=== PATIENT | female | born 1955 | race Caucasian/White ===

== ENCOUNTER 2019-05-21 07:55 | Emergency (ER) | payer MEDICARE ==
[~2019-05-21] VITALS: Ht 165.1 cm; Wt 74.8 kg
[~2019-05-21 07:55] MED LIST: ALBUTEROL SULF8.5 GM; ASPIRIN EC81 MG PO; ATORVASTATIN CA20 MG PO; CARVEDILOL6.25 MG PO; CLOPIDOGREL75 MG PO; DILANTIN100 MG PO; DULERA 200 MCG/13 GM; GABAPENTIN300 MG PO; HYDROCODON-ACE1 EA12; LIDOCAINE1 EA; SPIRIVA18 MCG INH; TRIAMCINOLONE A15 G3; VALIUM10 MG; VESICARE5 MG PO; ZANTAC150 MG; ZOMIG5 MG; ZONISAMIDE100 MG; atrovastin; flonase
--- OUTSIDE RECORDS SUMMARY | 2019-05-21 07:59 | XMS REPORT | Clinical Summary ---
Author Author AKBAR Videovalis GmbHEastern Idaho Regional Medical CenterSkout [facility] Organization [facility] Address Unknown Phone Unavailable Care Team Providers Care Bass Fisher Name Role Phone Akira Gibbons PCP Unavailable Allergies Comments Active Allergy Reactions Severity Noted Date Sulfamethoxazole-Trimetho Itching High 03/22/2015 prim Budesonide-Formoterol Nausea Only High 03/22/2015 Medications End Date Status Medication Sig Dispensed Refills Start Date Active atorvastatin (LIPITOR) 80 Take 40 mg by 0 MG tablet mouth daily . Active pantoprazole (PROTONIX) Take 40 mg by 0 40 MG tablet mouth daily. Active phenytoin (DILANTIN) 100 Take 100 mg 0 MG ER capsuleIndications: by mouth as per pt and , directed 100 mg every night; On Thursday, , Thursday, Thursday 100 mg in the day time added. Active solifenacin (VESICARE) 5 Take 5 mg by 0 MG tablet mouth daily. Active tiotropium (SPIRIVA) 18 Inhale 18 mcg 0 mcg inhalation capsule by mouth via inhaler daily. Active albuterol HFA (VENTOLIN Inhale 1 puff 0 HFA) 90 mcg/actuation by mouth via inhaler inhaler every 6 (six) hours as needed for Wheezing. Active zonisamide (ZONEGRAN) 100 Take 100 mg 0 MG capsule by mouth 2 (two) times daily . Active pregabalin (LYRICA) 50 MG Take 50 mg by 0 capsule mouth 2 (two) times daily . Active ranitidine (ZANTAC) 150 Take 150 mg 0 MG tablet by mouth 2 (two) times daily. Active calcium citrate-vitamin Take 600 mg 0 D3 250 mg calcium- 200 by mouth. unit Tab Active DULERA 200-5 2 puffs 2 0 02/18/201 mcg/actuation inhaler (two) times 9 daily . Active fluticasone (FLONASE) 50 0 mcg/actuation nasal spray 8 Active clobetasol (TEMOVATE) AP AA ON 0 0.05 % cream RIGHT ARM QD 8 FOR 2 WEEKS CYCLES 01/20/2020 Active furosemide (LASIX) 20 MG Take 1 tablet 30 tablet 0 tablet (20 mg total) 9 by mouth daily. 01/20/2020 Active metoprolol (LOPRESSOR) Take 1 tablet 60 tablet 0 100 MG tablet (100 mg 9 total) by mouth 2 (two) times daily. Active oxyCODONE-acetaminophen Take 1 tablet 0 (PERCOCET) 10-325 mg per by mouth tablet every 6 (six) hours as needed for Pain. 05/23/2019 Active methocarbamol (ROBAXIN) Take 1 tablet 30 tablet 0 500 MG tablet (500 mg 9 total) by mouth 3 (three) times daily as needed (muscle spasms) for up to 10 days. 05/13/2019 Discontinued aspirin 81 MG EC tablet Take 81 mg by 0 mouth daily. 05/13/2019 Discontinued clopidogrel (PLAVIX) 75 Take 75 mg by 0 mg tablet mouth daily. 01/17/2019 Discontinued diazepam (VALIUM) 10 MG Take 10 mg by 0 tablet mouth every 12 (twelve) hours as needed for Anxiety. 05/02/2019 Discontinued HYDROcodone-acetaminophen Take 1 tablet 0 (NORCO 7.5-325) 7.5-325 by mouth mg per tablet every 6 (six) hours as needed for Pain. 01/20/2019 Discontinued carvedilol (COREG) 6.25 Take 6.25 mg 0 MG tablet by mouth 2 (two) times daily with breakfast and dinner. 01/18/2019 Discontinued mometasone-formoterol Inhale 2 0 (DULERA) 100-5 puffs by mcg/actuation inhaler mouth via inhaler 2 (two) times daily. 05/02/2019 Discontinued LORazepam (ATIVAN) 0.5 MG Take 0.5 mg 0 tablet by mouth every 6 (six) hours as needed for Anxiety. 01/18/2019 Discontinued LORazepam (ATIVAN) 0.5 MG 0 tablet 8 01/18/2019 Discontinued PROTONIX 40 mg tablet 0 9 01/18/2019 Discontinued ZANTAC 150 mg tablet 0 8 01/18/2019 Discontinued solifenacin (VESICARE) 5 0 MG tablet 9 01/18/2019 Discontinued SPIRIVA WITH HANDIHALER 0 18 mcg inhalation capsule 9 01/18/2019 Discontinued zonisamide (ZONEGRAN) 100 0 MG capsule 9 01/18/2019 Discontinued aspirin-calcium carbonate Take by 0 81 mg-300 mg calcium(777 mouth. mg) Tab 01/31/2019 predniSONE (DELTASONE) 20 Take 2 40 tablet 0 MG tablet tablets (40 9 mg total) by mouth 2 (two) times daily for 10 days. 02/08/2019 rivaroxaban (XARELTO) 15 Take 1 tablet 38 tablet 0 mg Tab tablet (15 mg total) 9 by mouth 2 (two) times daily with breakfast and dinner for 19 days. 05/13/2019 Discontinued rivaroxaban (XARELTO) 20 Take 1 tablet 30 tablet 2 mg Tab tablet (20 mg total) 9 by mouth daily with dinner. 05/16/2019 enoxaparin (LOVENOX) 40 Inject 0.4 3 Syringe 0 mg/0.4 mL Syrg mLs (40 mg 9 total) subcutaneousl y daily for 2 days. 05/16/2019 polyethylene glycol Take 17 g by 14 each 0 (GLYCOLAX) 17 gram packet mouth as 9 needed (constipation ) for up to 3 days. Active Problems Problem Noted Date Lumbar disc disease 05/12/2019 Radiculitis, lumbosacral 05/03/2019 Chest pain 03/04/2019 SOB (shortness of breath) 01/18/2019 Atrial flutter/atrial fibrillation with rapid ventricular response 01/18/2019 Other pulmonary embolism without acute cor pulmonale 01/17/2019 Pulmonary infarct 01/17/2019 PAD (peripheral artery disease) 01/17/2019 Iatrogenic pneumothorax 04/11/2017 Pneumothorax after biopsy 04/10/2017 Lung nodule 04/10/2017 CAD (coronary artery disease) 04/10/2017 GERD (gastroesophageal reflux disease) 04/10/2017 Pneumothorax after biopsy 04/09/2017 PADs/p Aortogram:Plaque Patent Express stent RCIA ([id number] on 06/11/06);LEFT Bolus josette: Diffuse Disease 03/22/2015 Claudication of left lower extremity HLD (hyperlipidemia) CVD, Carotid plaque less than 50%, US 05/11/2014 COPD (chronic obstructive pulmonary disease) Resolved Problems Problem Noted Date Resolved Date SOB (shortness of breath) 01/17/2019 01/17/2019 Atrial fibrillation with RVR 01/17/2019 01/17/2019 Chronic bronchitis 04/10/2017 01/17/2019 PVD (peripheral vascular disease) 04/10/2017 01/17/2019 Encounters Care Team Description Date Type Specialty Joleen Christian 05/11/2019 Anesthesia Event Anson Bailey MD LAMINECTOMY,LUMBAR W/DISCECTOMY 05/11/2019 Surgery 05/03/2019 Travel Ramy Zurita MD Wellinghoff, Vanessa Thea, MD Hite, Wayne K., DO Chavarria, Jaime, MD Radiculitis, lumbosacral (Primary Dx); Flank pain; Cholecystitis; Essential hypertension; Chronic obstructive pulmonary disease, unspecified COPD type (HCC) 05/02/2019 Hospital General Internal Medicine - Encounter 05/13/2019 05/02/2019 Orders Only General Internal Medicine 05/02/2019 Travel 03/05/2019 Travel Jose Manuel Pack MD Zalavarria, Jonard Herbias, MD Chest pain, unspecified type (Primary Dx) 03/04/2019 Emergency Cardiology - 03/05/2019 03/04/2019 Orders Only General Internal Medicine 03/04/2019 Travel Dayron Patten Jr., MD Dang, Adan Epps MD SOB (shortness of breath) (Primary Dx); Other acute pulmonary embolism without acute cor pulmonale (HCC); Lung nodule; Chronic obstructive pulmonary disease with acute exacerbation (HCC); Paroxysmal atrial fibrillation (HCC) 01/17/2019 Hospital Cardiology - Encounter 01/20/2019 01/17/2019 Orders Only General Internal Medicine 01/17/2019 Travel after 05/20/2018 Family History Medical History Relation Name Comments Heart disease Father Cancer Mother Cancer Sister Relation Name Status Comments Father Mother Sister Social History Date Tobacco Use Types Packs/Day Years Used Quit: 06/17/2014 Former Smoker 1 10 Smokeless Tobacco: Former User Tobacco Cessation: Counseling Given: No Alcohol Use Drinks/Week oz/Week Comments No Sex Assigned at Date Recorded Not on file Industry Job Start Date Occupation Not on file Not on file Not on file Travel End Travel History Travel Start No recent travel history available. Last Filed Vital Signs Time Taken Vital Sign Reading 05/13/2019 9:20 AM CDT Blood Pressure 107/56 05/13/2019 9:20 AM CDT Pulse 80 05/13/2019 9:20 AM CDT Temperature 35.6 C (96 F) 05/13/2019 9:20 AM CDT Respiratory Rate 18 05/13/2019 9:20 AM CDT Oxygen Saturation 94% 05/10/2019 2:48 AM CDT Inhaled Oxygen 28% Concentration 05/11/2019 10:14 PM CDT Weight 80.6 kg (177 lb 12.8 oz) 05/11/2019 10:14 PM CDT Height 165.1 cm (5' 5") 05/11/2019 10:14 PM CDT Body Mass Index 29.59 Plan of Treatment Not on file Procedures Comments Procedure Name Priority Date/Time Associated Diagnosis RHYTHM STRIP - SCAN 05/18/2019 2:33 PM CDT RHYTHM STRIP - SCAN 05/17/2019 8:01 AM CDT RHYTHM STRIP - SCAN 05/13/2019 11:50 AM CDT CBC W/PLT COUNT & AUTO Routine 05/13/2019 DIFFERENTIAL 3:59 AM CDT CBC W/PLT COUNT & AUTO Routine 05/13/2019 DIFFERENTIAL 3:59 AM CDT BASIC METABOLIC PANEL (7) Routine 05/13/2019 3:59 AM CDT TRANSFUSION SERVICE 05/12/2019 REPORT - SCAN 6:01 PM CDT CBC W/PLT COUNT & AUTO Routine 05/12/2019 DIFFERENTIAL 6:15 AM CDT CBC W/PLT COUNT & AUTO Routine 05/12/2019 DIFFERENTIAL 6:15 AM CDT BASIC METABOLIC PANEL (7) Routine 05/12/2019 6:11 AM CDT POCT-GLUCOSE METER Routine 05/11/2019 10:10 PM CDT FL KENNEL KEEPER IN OR 30 Routine 05/11/2019 MINUTE INCREMENTS 3:38 PM CDT FL KENNEL KEEPER IN OR 30 Routine 05/11/2019 MINUTE INCREMENTS 2:50 PM CDT LAMINECTOMY,LUMBAR 05/11/2019 Lumbar disc disease W/DISCECTOMY 12:30 PM CDT Special Needs (ANDRIA FRAME, MICROSCOPE ) RHYTHM STRIP - SCAN 05/11/2019 10:20 AM CDT ABORH, MANUAL STAT 05/11/2019 6:29 AM CDT CBC W/PLT COUNT & AUTO Routine 05/11/2019 DIFFERENTIAL 5:39 AM CDT TYPE AND SCREEN, Routine 05/11/2019 AUTOMATED 5:39 AM CDT PT/APTT Routine 05/11/2019 5:39 AM CDT PHOSPHORUS Routine 05/11/2019 5:39 AM CDT MAGNESIUM Routine 05/11/2019 5:39 AM CDT BASIC METABOLIC PANEL (7) Routine 05/11/2019 5:39 AM CDT CBC W/PLT COUNT & AUTO Routine 05/11/2019 DIFFERENTIAL 5:39 AM CDT URINALYSIS W/ REFLEX Routine 05/10/2019 URINE CULTURE 11:45 AM CDT PLATELET AGGREGATION: Routine 05/09/2019 DRUG EFFECT 9:47 AM CDT PERIPHERAL VASCULAR 05/07/2019 REPORT - SCAN 9:20 PM CDT VENOUS DOPPLER LEGS Routine 05/06/2019 BILATERAL 2:00 PM CDT CBC W/PLT COUNT & AUTO Routine 05/05/2019 DIFFERENTIAL 3:55 AM CDT CBC W/PLT COUNT & AUTO Routine 05/05/2019 DIFFERENTIAL 3:55 AM CDT BASIC METABOLIC PANEL (7) Routine 05/05/2019 3:54 AM CDT MR SPINE LUMBAR WITHOUT MARIO 05/04/2019 IV CONTRAST 5:04 PM CDT CBC W/PLT COUNT & AUTO Routine 05/04/2019 DIFFERENTIAL 3:37 AM CDT CBC W/PLT COUNT & AUTO Routine 05/04/2019 DIFFERENTIAL 3:37 AM CDT BASIC METABOLIC PANEL (7) Routine 05/04/2019 3:37 AM CDT BASIC METABOLIC PANEL (7) Routine 05/03/2019 6:19 AM CDT CBC W/PLT COUNT & AUTO Routine 05/03/2019 DIFFERENTIAL 5:01 AM CDT PT/APTT Routine 05/03/2019 5:01 AM CDT CBC W/PLT COUNT & AUTO Routine 05/03/2019 DIFFERENTIAL 5:01 AM CDT US ABDOMEN LIMITED STAT 05/02/2019 9:20 PM CDT HEPATIC FUNCTION PANEL Routine 05/02/2019 9:06 PM CDT BILIRUBIN, ADULT TOTAL STAT 05/02/2019 9:06 PM CDT ECG 12-LEAD Routine 05/02/2019 6:52 PM CDT ECG 12-LEAD Routine 05/02/2019 6:52 PM CDT Procedure Note - Interface, External Ris In - 05/02/2019 9:05 PM CDT Ventricula r Rate 96 BPM Atrial Rate 227 BPM QRS Duration 82 ms Q-T Interval 344 ms QTC Calculatio n(Bazett) 434 ms R Cecilia 61 degrees T Cecilia 68 degrees Atrial fibrillati on Anterior infarct , age undetermin ed Abnormal ECG When compared with ECG of 9 12:11, Atrial fibrillati on has replaced Atrial flutter QT has shortened POCT-LACTIC ACID, VENOUS Routine 05/02/2019 6:[address] ABDOMEN/PELVIS STAT 05/02/2019 WITH/WITHOUT IV CONTRAST 6:00 PM CDT CBC W/PLT COUNT & AUTO STAT 05/02/2019 DIFFERENTIAL 1:52 PM CDT ALKALINE PHOSPHATASE STAT 05/02/2019 1:52 PM CDT AST (SGOT) STAT 05/02/2019 1:52 PM CDT ALT (SGPT) STAT 05/02/2019 1:52 PM CDT URINALYSIS W/ MICROSCOPIC STAT 05/02/2019 1:52 PM CDT BASIC METABOLIC PANEL (7) STAT 05/02/2019 1:52 PM CDT CBC W/PLT COUNT & AUTO STAT 05/02/2019 DIFFERENTIAL 1:52 PM CDT RHYTHM STRIP - SCAN 03/07/2019 5:24 PM CDT REPORT OF PROCEDURE - 03/07/2019 ENDOSCOPY SCAN 3:30 PM CDT RHYTHM STRIP - SCAN 03/07/2019 12:20 PM CDT CBC W/PLT COUNT & AUTO Routine 03/05/2019 DIFFERENTIAL 4:28 AM CDT CBC W/PLT COUNT & AUTO Routine 03/05/2019 DIFFERENTIAL 4:28 AM CDT MAGNESIUM Routine 03/05/2019 4:28 AM CDT LIPID PANEL Routine 03/05/2019 4:28 AM CDT HEPATIC FUNCTION PANEL Routine 03/05/2019 4:28 AM CDT BASIC METABOLIC PANEL (7) Routine 03/05/2019 4:28 AM CDT TROPONIN I Routine 03/05/2019 4:28 AM CDT TROPONIN I Routine 03/04/2019 9:36 PM CDT ED ECG INTERPRETATION Routine 03/04/2019 2:07 PM CDT XR CHEST 2 VIEWS STAT 03/04/2019 1:34 PM CDT D-DIMER STAT 03/04/2019 1:24 PM CDT CBC W/PLT COUNT & AUTO STAT 03/04/2019 DIFFERENTIAL 1:20 PM CDT RAPID TROPONIN I STAT 03/04/2019 1:20 PM CDT BASIC METABOLIC PANEL (7) STAT 03/04/2019 1:20 PM CDT CBC W/PLT COUNT & AUTO STAT 03/04/2019 DIFFERENTIAL 1:20 PM CDT PT/APTT STAT 03/04/2019 12:42 PM CDT ECG 12-LEAD Routine 03/04/2019 12:11 PM CDT Procedure Note - Interface, External Ris In - 03/04/2019 7:52 PM CDT Ventricula r Rate 82 BPM Atrial Rate 241 BPM QRS Duration 92 ms Q-T Interval 420 ms QTC Calculatio n(Bazett) 490 ms R Cecilia 34 degrees T Cecilia 59 degrees Atrial flutter with variable A-V block Low voltage QRS Prolonged QT Abnormal ECG When compared with ECG of 9 09:58, Atrial flutter has replaced Atrial fibrillati on Vent. rate has decreased BY 42 BPM ECG 12-LEAD STAT 03/04/2019 12:11 PM CDT RHYTHM STRIP - SCAN 01/24/2019 9:10 AM TACK WELDER REPORT OF PROCEDURE - 01/24/2019 ENDOSCOPY SCAN 9:10 AM TACK WELDER POCT-GLUCOSE METER Routine 01/20/2019 8:53 AM TACK WELDER BASIC METABOLIC PANEL (7) Routine 01/20/2019 5:26 AM TACK WELDER B-TYPE NATRIURETIC FACTOR Routine 01/20/2019 (BNP) 5:26 AM TACK WELDER POCT-GLUCOSE METER Routine 01/19/2019 8:57 PM TACK WELDER POCT-GLUCOSE METER Routine 01/19/2019 4:59 PM TACK WELDER POCT-GLUCOSE METER Routine 01/19/2019 12:18 PM TACK WELDER POCT-GLUCOSE METER Routine 01/19/2019 8:36 AM TACK WELDER ECHOCARDIOGRAM REPORT - 01/18/2019 SCAN 9:20 PM TACK WELDER POCT-GLUCOSE METER Routine 01/18/2019 9:09 PM TACK WELDER POCT-GLUCOSE METER Routine 01/18/2019 4:48 PM TACK WELDER 2D ECHO W/ DOPPLER Routine 01/18/2019 (CW/PW/COLOR) 1:47 PM TACK WELDER POCT-GLUCOSE METER Routine 01/18/2019 7:24 AM TACK WELDER BASIC METABOLIC PANEL (7) Routine 01/18/2019 5:10 AM TACK WELDER CBC (HEMOGRAM ONLY) Routine 01/18/2019 5:10 AM TACK WELDER POCT-GLUCOSE METER Routine 01/17/2019 9:[address] CHEST PE TEST DESIGN STAT 01/17/2019 11:30 AM TACK WELDER CBC W/PLT COUNT & AUTO STAT 01/17/2019 DIFFERENTIAL 10:20 AM TACK WELDER PT/APTT STAT 01/17/2019 10:20 AM TACK WELDER D-DIMER STAT 01/17/2019 10:20 AM TACK WELDER CBC W/PLT COUNT & AUTO STAT 01/17/2019 DIFFERENTIAL 10:20 AM TACK WELDER RAPID TROPONIN I STAT 01/17/2019 10:20 AM TACK WELDER B-TYPE NATRIURETIC FACTOR STAT 01/17/2019 (BNP) 10:20 AM TACK WELDER MAGNESIUM STAT 01/17/2019 10:20 AM TACK WELDER BASIC METABOLIC PANEL (7) STAT 01/17/2019 10:20 AM TACK WELDER ECG 12-LEAD Routine 01/17/2019 9:58 AM TACK WELDER Procedure Note - Interface, External Ris In - 01/17/2019 9:09 PM TACK WELDER Ventricula r Rate 124 BPM Atrial Rate 136 BPM P-R Interval 130 ms QRS Duration 94 ms Q-T Interval 308 ms QTC Calculatio n(Bazett) 442 ms P Cecilia 51 degrees R Cecilia 46 degrees T Cecilia 74 degrees Sinus tachycardi a Low voltage QRS Borderline ECG When compared with ECG of 19:01, Premature supraventr icular complexes are no longer Present Vent. rate has increased BY 55 BPM ECG 12-LEAD STAT 01/17/2019 9:58 AM TACK WELDER after 05/20/2018 Results * RHYTHM STRIP - SCAN (05/18/2019 2:33 PM CDT) Only the most recent of 7 results within the time period is included. Narrative Performed At * CBC with platelet count + automated diff (05/13/2019 3:59 AM CDT) Only the most recent of 10 results within the time period is included. WBC 5.6 3.5 - 10.5 K/L [facility] RBC 3.70 (L) 3.93 - 5.22 M/L [facility] Hemoglobin 12.2 11.2 - 15.7 GM/DL [facility] Hematocrit 38.8 34.1 - 44.9 % [facility] MCV 104.9 (H) 79.4 - 94.8 fL [facility] MCH 33.0 (H) 25.6 - 32.2 pg [facility] MCHC 31.4 (L) 32.2 - 35.5 GM/DL [facility] RDW 14.6 (H) 11.7 - 14.4 % [facility] Platelets 167 150 - 450 K/CU MM [facility] MPV 10.4 9.4 - 12.3 fL [facility] nRBC 0 0 - 0 /100 WBC [facility] % Neutros 61 % [facility] % Lymphs 21 % [facility] % Monos 10 % [facility] % Eos 7 % [facility] % Baso 1 % [facility] # Neutros 3.42 1.56 - 6.13 K/L [facility] # Lymphs 1.18 1.18 - 3.74 K/L [facility] # Monos 0.56 (H) 0.24 - 0.36 K/L [facility] # Eos 0.41 (H) 0.04 - 0.36 K/L [facility] # Baso 0.04 0.01 - 0.08 K/L [facility] Immature 0 0 - 1 % [facility] Granulocytes-[facility] Specimen Blood Performing Organization Address City/State/Zipcode Phone Number [facility] [address] [place] [address] [facility] * Basic Metabolic Panel (05/13/2019 3:59 AM CDT) Only the most recent of 12 results within the time period is included. Sodium 143 136 - 145 meq/L [facility] Potassium 3.8 3.5 - 5.1 meq/L [facility] Chloride 110 (H) 98 - 107 meq/L [facility] CO2 25 22 - 29 meq/L [facility] BUN 15 7 - 21 mg/dL [facility] Creatinine 0.98 0.57 - 1.25 mg/dL [facility] Glucose 99 70 - 105 mg/dL [facility] Calcium 8.9 8.4 - 10.2 mg/dL [facility] EGFR 57Comment: ESTIMATED GFR IS mL/min/1.[address] [facility] NOT ACCURATE CREATININE [facility] CLEARANCE IN PREDICTING GLOMERULAR FILTRATION RATE. ESTIMATED GFR IS NOT APPLICABLE FOR DIALYSIS PATIENTS. Specimen Blood Performing Organization Address City/State/Zipcode Phone Number [address] [address] [phone] [place] [address] * TRANSFUSION SERVICE REPORT - SCAN (05/12/2019 6:01 PM CDT) Narrative Performed At * POC-Glucose meter (05/11/2019 10:10 PM CDT) Only the most recent of 10 results within the time period is included. POC-Glucose Meter 180 (H)Comment: TESTED AT 70 - 110 mg/dL [facility] [address] [place] [id number] Specimen Blood Performing Organization Address City/[facility] Cent[facility] Phone Number [address] [address] [phone] * [place] veneer stock grader in or 30 minute increments (05/11/2019 3:38 PM CDT) Only the most recent of 2 results within the time period is included. Specimen Narrative Performed At FINAL REPORT [facility] Examination: Intraoperative evaluation 2 fluoroscopic spot views were obtained during the procedure by the ordering service. Images are nondiagnostic as no radiologist was present at the time of imaging. Fluoroscopic time was 14.2 seconds. Please see the procedure report for details. Signed: Kosta Casillas MD Report Verified Date/Time:05/12/2019 03:15:55 Reading Location: [address] Reading Room Procedure Note Interface, External Ris In - 05/12/2019 3:18 AM CDT FINAL REPORT Examination: Intraoperative evaluation 2 fluoroscopic spot views were obtained during the procedure by the ordering service. Images are nondiagnostic as no radiologist was present at the time of imaging. Fluoroscopic time was 14.2 seconds. Please see the procedure report for details. Signed: Kosta Casillas MD Report Verified Date/Time: 05/12/2019 03:15:55 Reading Location: [address] Reading Room Performing Organization Address City/State/Zipcode Phone Number GE RIS * ABORH, manual (05/11/2019 6:29 AM CDT) ABO Grouping A [facility] Rh Factor POS [facility] Specimen Blood Performing Organization Address City/[facility]/Zipcode Phone Number [place] [phone] [place] [address] * Type and screen, automated (05/11/2019 5:39 AM CDT) ABO/RH AUTOMATED (BEAKER) A POSITIVE [facility] Ab Scrn NEGATIVE [facility] Specimen Blood Performing Organization Address [facility] [place] [address] [phone] [place] [address] * PT/aPTT (05/11/2019 5:39 AM CDT) Only the most recent of 4 results within the time period is included. Protime 13.0 11.9 - 14.2 seconds [facility] INR 1.0 <=5.9 [facility] PTT 29.3 22.5 - 36.0 seconds [facility] Specimen Blood Narrative Performed At Effective 04/20/2019: PT Reference Range Change [facility] New: 11.9-14.2Previous: 11.7-14.7 [facility] RECOMMENDED COUMADIN/WARFARIN INR THERAPY RANGES STANDARD DOSE: 2.0-3.0Includes: PROPHYLAXIS for venous thrombosis, systemic embolization; TREATMENT for venous thrombosis and/or pulmonary embolus. HIGH RISK: Target INR is 2.5-3.5 for patients wiht mechanical heart valves. Performing Organization Address City/[facility]/Zipcode Phone Number [place] [phone] [place], [place] [phone] [facility] * Phosphorus (05/11/2019 5:39 AM CDT) Phosphorus 4.2 2.3 - 4.7 mg/dL [facility] Specimen Blood Performing Organization Address [facility] Cent[facility]ode Phone Number [address] [address] [facility] * Magnesium (05/11/2019 5:39 AM CDT) Only the most recent of 3 results within the time period is included. Magnesium 2.0 1.6 - 2.6 mg/dL [facility] Specimen Blood Performing Organization Address [facility] Centercode Phone Number [address] [address] [facility] * Urinalysis w/Microscopic + Reflex to Culture (05/10/2019 11:45 AM CDT) Color, UA Light Yellow [facility] Clarity, UA Clear [facility] Specific Williamson, UA 1.011 1.001 - 1.035 [facility] pH, UA 6.0 5.0 - 8.0 [facility] Protein, UA Negative Negative [facility] Glucose, UA Negative Negative [facility] Ketones, UA Negative Negative [facility] Bilirubin, UA Negative Negative [facility] Blood, UA Negative Negative [facility] Nitrite, UA Negative Negative [facility] Leukocytes, UA Moderate (A) Negative [facility] Urobilinogen, UA 0.2 0.2 - 1.0 mg/dL [facility] RBC, UA <1 /HPF [facility] WBC, UA 7 /HPF [facility] Mucus Rare [facility] Squmarie Dietz, UA 2 /HPF [facility] Specimen Source [facility] Specimen Urine Performing Organization Address City/State/Zipcode Phone Number [facility] [address] [place] [address] [facility] * Platelet Aggregation: Drug Effect (05/09/2019 9:47 AM CDT) Strong ADP 100 (H) 70 - 94 % [facility] Weak ADP 100 (H) 60 - 91 % [facility] Arachadonic Acid 74 63 - 89 % [facility] Interpretation Normal aggregation results [facility] with all agonists. [facility] Pathologist: Alton Burkett MD (electronic [facility] signature) [facility] Platelets 177 150 - 450 K/CU MM [facility] Specimen Blood Narrative Performed At Platelet aggregation results may be falsely low with platelet counts [facility] <100,000/CU MM. [facility] Performing Organization Address City/State/Zipcode Phone Number [facility] [address] [place] [address] [facility] * PERIPHERAL VASCULAR REPORT - SCAN (05/07/2019 9:20 PM CDT) Narrative Performed At * Venous Doppler legs Bilateral (05/06/2019 2:00 PM CDT) Ejection Fraction [facility] ECHO HEARTLAB MKCKESSON CPACS Specimen Impressions Performed At Right Impression [facility] 1. There is no deep venous obstruction in the common femoral, profunda MKCKESSON CPACS femoral, femoral, popliteal, posterior tibial or peroneal veins. 2. There is no superficial venous obstruction in the great saphenous vein. Left Impression 1. There is no deep venous obstruction in the common femoral, profunda femoral, femoral, popliteal or posterior tibial veins. 2. The peroneal veins are poorly visualized. 3. There is no superficial venous obstruction in the great saphenous vein. Conclusions Summary Venous duplex imaging and compression of the bilateral lower extremities were performed. The veins were technically difficult to visualize due to patient inability to cooperate. The bilateral venous systems were patent and compressible with no evidence of thrombus where visualized. The venous Doppler waveforms were phasic with respiration. Signature Velocities are measured in cm/s ; Diameters are measured in cm Narrative Performed At PV LAB - Lower Extremities DVT Study [facility] Demographics [facility] Patient Name MELINDA BEAR Date of Study05/06/2019 [id number] Visit Number [id number] Gender Female Accession Number [id number] Date of Birth1955 [facility]erring[facility] [id number] Physician SonographerRachel Singh Interpreting Joleen Saldana RN, [facility] CentergriseldaNJ Procedure Type of Study: Veins: Lower Extremities DVT Study, VENOUS DOPPLER LEG, BILATERAL. Indications for Study:Evaluate for thrombus . Patient Status:Routine. Study Location:Vascular Lab. Technical Quality:Adequate visualization. Procedure Note Interface, External Ris In - 05/07/2019 5:06 PM CDT PV LAB - Lower Extremities DVT Study Demographics Patient Name MELINDA BEAR Date of Study 05/06/2019 Age 63 Visit Number [id number] Gender Female Accession Number [id number] Date of 1955 Referring [facility] Lucien K. Room Number 1460 Physician Administrative Support Technician Rachel Singh Interpreting Joleen Saldana RN, RVT Physician Procedure Type of Study: Veins: Lower Extremities DVT Study, VENOUS DOPPLER LEG, BILATERAL. Indications for Study:Evaluate for thrombus . Patient Status:Routine. Study Location:Vascular Lab. Technical Quality:Adequate visualization. Impressions Right Impression 1. There is no deep venous obstruction in the common femoral, profunda femoral, femoral, popliteal, posterior tibial or peroneal veins. 2. There is no superficial venous obstruction in the great saphenous vein. Left Impression 1. There is no deep venous obstruction in the common femoral, profunda femoral, femoral, popliteal or posterior tibial veins. 2. The peroneal veins are poorly visualized. 3. There is no superficial venous obstruction in the great saphenous vein. Conclusions Summary Venous duplex imaging and compression of the bilateral lower extremities were performed. The veins were technically difficult to visualize due to patient inability to cooperate. The bilateral venous systems were patent and compressible with no evidence of thrombus where visualized. The venous Doppler waveforms were phasic with respiration. Signature Velocities are measured in cm/s ; Diameters are measured in cm Performing Organization Address City/State/Zipcode Phone Number [facility] MKCKESSON CPACS * MR spine lumbar without IV contrast (05/04/2019 5:04 PM CDT) Specimen Narrative Performed At FINAL REPORT [facility] MR, SPINE, LUMBAR, WITHOUT CONTRAST INDICATION: Lumbar radiculopathy, >6wks conservative tx, persistent-progressive sx, surgical candidate COMPARISON: February 08, 2014 TECHNIQUE: Multiplanar, multisequence MR images of the lumbar spine without contrast. FINDINGS: 5 nonrib-bearing lumbar-type vertebral bodies are present. Alignment of the lumbar spine is within normal limits. Vertebral body height is maintained. Multilevel disc space height loss is present, most conspicuous at L3-L4, L4-L5 and L5-S1 Conus terminates at L1. Cauda equina demonstrates normal appearance. No acute findings in the paraspinal soft tissues. Evaluation of the individual levels demonstrates: L1/L2: Symmetric disc bulge and mild bilateral facet arthropathy and hypertrophy. No significant canal or foraminal narrowing. L2/L3: Mild disc bulge. No significant spinal canal or foraminal narrowing L3/L4: Disc bulge with superimposed right paracentral and foraminal disc extrusion with cranial migration of disc material, some of which extends to the right subarticular recess and neural foramen with impingement of the right L4 and L3 nerve roots respectively. Although a tinier extrusion was present on prior exam, extrusion has significantly increased in size in the interim with further impingement of the aforementioned nerve roots. L4/L5: Disc bulge and bilateral facet arthropathy and hypertrophy. Mild bilateral foraminal narrowing. No significant spinal canal narrowing. L5/S1: Symmetric disc bulge and bilateral facet arthropathy and hypertrophy. No significant canal or foraminal narrowing. IMPRESSION: Interval increase disc degeneration at L3-L4 with increased size of disc extrusion which now extends to the right subarticular recess and right neural foramen with impingement of the L4 and L3 nerve roots respectively. Signed: Alex Julien MD Report Verified Date/Time:05/04/2019 18:33:49 Reading Location: [address] Neuro Reading Room Procedure Note Interface, External Ris In - 05/04/2019 6:35 PM CDT FINAL REPORT MR, SPINE, LUMBAR, WITHOUT CONTRAST INDICATION: Lumbar radiculopathy, >6wks conservative tx, persistent-progressive sx, surgical candidate COMPARISON: February 08, 2014 TECHNIQUE: Multiplanar, multisequence MR images of the lumbar spine without contrast. FINDINGS: 5 nonrib-bearing lumbar-type vertebral bodies are present. Alignment of the lumbar spine is within normal limits. Vertebral body height is maintained. Multilevel disc space height loss is present, most conspicuous at L3-L4, L4-L5 and L5-S1 Conus terminates at L1. Cauda equina demonstrates normal appearance. No acute findings in the paraspinal soft tissues. Evaluation of the individual levels demonstrates: L1/L2: Symmetric disc bulge and mild bilateral facet arthropathy and hypertrophy. No significant canal or foraminal narrowing. L2/L3: Mild disc bulge. No significant spinal canal or foraminal narrowing L3/L4: Disc bulge with superimposed right paracentral and foraminal disc extrusion with cranial migration of disc material, some of which extends to the right subarticular recess and neural foramen with impingement of the right L4 and L3 nerve roots respectively. Although a tinier extrusion was present on prior exam, extrusion has significantly increased in size in the interim with further impingement of the aforementioned nerve roots. L4/L5: Disc bulge and bilateral facet arthropathy and hypertrophy. Mild bilateral foraminal narrowing. No significant spinal canal narrowing. L5/S1: Symmetric disc bulge and bilateral facet arthropathy and hypertrophy. No significant canal or foraminal narrowing. IMPRESSION: Interval increase disc degeneration at L3-L4 with increased size of disc extrusion which now extends to the right subarticular recess and right neural foramen with impingement of the L4 and L3 nerve roots respectively. Signed: Alex Julien MD Report Verified Date/Time: 05/04/2019 18:33:49 Reading Location: [facility] C013 Neuro Reading Room Performing Organization Address City/State/Zipcode Phone Number [facility] * US abdomen limited (05/02/2019 9:20 PM CDT) Specimen Narrative Performed At FINAL REPORT [facility] Abdominal ultrasound dated 05/02/2019 Comment:Real-time transabdominal ultrasound of the right upper quadrant abdomen was performed. Liver is normal in size and measures 13.3 cm in length. The echogenicity of the liver is normal.No focal lesion is noted in the liver. Gallbladder is distended. Sludge is present without gallstone seen. No biliary dilatation is seen. Common bile duct measures 5 mm in diameter.Main portal vein measures 11 mm in diameter. Pancreas is visualized and unremarkable. Right kidney measures 10.0 x 5.3 x 5.0 cm.Echogenicity of the right kidney is normal No ascites is present in the abdomen. Abdominal aorta is normal in caliber. IVC and Hepatic veins are patent. Impression: Distended gallbladder with sludge. Otherwise unremarkable ultrasound of the right upper quadrant abdomen. Signed: Jordy Ballard MD Report Verified Date/Time:05/02/2019 21:41:02 Reading Location: [facility] B1 C013W Consult Reading Room Procedure Note Interface, External Ris In - 05/02/2019 9:43 PM CDT FINAL REPORT Abdominal ultrasound dated 05/02/2019 Comment: Real-time transabdominal ultrasound of the right upper quadrant abdomen was performed. Liver is normal in size and measures 13.3 cm in length. The echogenicity of the liver is normal. No focal lesion is noted in the liver. Gallbladder is distended. Sludge is present without gallstone seen. No biliary dilatation is seen. Common bile duct measures 5 mm in diameter. Main portal vein measures 11 mm in diameter. Pancreas is visualized and unremarkable. Right kidney measures 10.0 x 5.3 x 5.0 cm. Echogenicity of the right kidney is normal No ascites is present in the abdomen. Abdominal aorta is normal in caliber. IVC and Hepatic veins are patent. Impression: Distended gallbladder with sludge. Otherwise unremarkable ultrasound of the right upper quadrant abdomen. Signed: Jordy Ballard MD Report Verified Date/Time: 05/02/2019 21:41:02 Reading Location: [facility] B1 C013W Consult Reading Room Performing Organization Address City/State/Zipcode Phone Number [facility] * Bilirubin, adult total (05/02/2019 9:06 PM CDT) Total Bilirubin 0.1 (L) 0.2 - 1.2 mg/dL [facility] Specimen Blood Performing Organization Address City/State/Zipcode Phone Number [facility] [address] [place] [address] [facility] * Hepatic function panel (05/02/2019 9:06 PM CDT) Only the most recent of 2 results within the time period is included. Protein, Total 4.6 (L) 6.0 - 8.3 gm/dL [facility] Albumin 2.7 (L) 3.5 - 5.0 g/dL [facility] Total Bilirubin 0.1 (L) 0.2 - 1.2 mg/dL [facility] Bilirubin, Direct 0.1 0.1 - 0.5 mg/dL [facility] Alkaline Phosphatase 68 40 - 150 U/L [facility] AST 14 5 - 34 U/L [facility] ALT 13 6 - 55 U/L [facility] Specimen Blood Performing Organization Address [facility]conc Phone Number [facility] [address] [place] [address] [facility] * ECG 12 lead (05/02/2019 6:52 PM CDT) Only the most recent of 3 results within the time period is included. Specimen Narrative Performed At Ventricular Rate 96 BPM GE MUSE Atrial Rate 227 BPM QRS Duration 82 ms Q-T Interval 344 ms QTC Calculation(Bazett) 434 ms R Cecilia 61 degrees T Cecilia 68 degrees Atrial fibrillation Anterior infarct , age undetermined Abnormal ECG When compared with ECG of 04-MAR-2019 12:11, Atrial fibrillation has replaced Atrial flutter Confirmed by Lisa PALACIOS MICHAEL ([id number]) on 05/03/2019 7:24:42 AM Procedure Note Interface, External Ris In - 05/03/2019 7:24 AM CDT Ventricular Rate 96 BPM Atrial Rate 227 BPM QRS Duration 82 ms Q-T Interval 344 ms QTC Calculation(Bazett) 434 ms R Cecilia 61 degrees T Cecilia 68 degrees Atrial fibrillation Anterior infarct , age undetermined Abnormal ECG When compared with ECG of 04-MAR-2019 12:11, Atrial fibrillation has replaced Atrial flutter Confirmed by Lisa PALACIOS MICHAEL ([id number]) on 05/03/2019 7:24:42 AM Performing Organization Address [facility] Phone Number [employer] * POC-Lactic Acid, Venous (05/02/2019 6:46 PM CDT) POC-Lactic Acid, Venous 0.7 (L)Comment: TESTED AT 0.9 - 1.7 mmol/L [facility] [address] [place] [id number] Specimen Blood Performing Organization Address City/State/Zipcode Phone Number [facility] [address] [place] [address] [facility] * CT abdomen/pelvis without & with IV contrast (05/02/2019 6:00 PM CDT) Specimen Narrative Performed At FINAL REPORT [facility] TECHNIQUE: CT of the abdomen and pelvis WITHOUT and WITH intravenous contrast and WITHOUT oral contrast. Dose modulation, iterative reconstruction, and/or weight-based adjustment of the mA/kV was utilized to reduce the radiation dose to as low as reasonably achievable. INDICATION: 63-year-old woman with right flank pain. COMPARISON: Abdomen and pelvis CT 04/15/2017. FINDINGS: LOWER THORAX: Dependent atelectasis and nonspecific interlobular septal thickening in both lung bases. HEPATOBILIARY: No focal hepatic lesions. Distended gallbladder measures 4.9 cm in transverse diameter with questionable trace pericholecystic fluid. No biliary ductal dilatation. SPLEEN: No splenomegaly. PANCREAS: No focal masses or ductal dilatation. ADRENALS: No adrenal nodules. KIDNEYS/URETERS: No hydronephrosis, stones, or solid mass lesions. PELVIC ORGANS/BLADDER: Unremarkable. PERITONEUM/RETROPERITONEUM: No free air or fluid. LYMPH NODES: No lymphadenopathy. VESSELS: Atherosclerotic vascular calcifications in the abdominal aorta and bilateral iliac arteries without aneurysm. GI TRACT: No distention or wall thickening. Normal appendix. BONES AND SOFT TISSUES: Osteopenia. Soft tissues are unremarkable. IMPRESSION: Distended gallbladder with questionable trace pericholecystic fluid; acute cholecystitis cannot be excluded. Right upper quadrant ultrasound is recommended for further evaluation. Signed: Yazmin Morales MD Report Verified Date/Time:05/02/2019 18:30:26 Reading Location: [facility] B1 C013Y CT Body Reading Room Procedure Note Interface, External Ris In - 05/02/2019 6:32 PM CDT FINAL REPORT TECHNIQUE: CT of the abdomen and pelvis WITHOUT and WITH intravenous contrast and WITHOUT oral contrast. Dose modulation, iterative reconstruction, and/or weight-based adjustment of the mA/kV was utilized to reduce the radiation dose to as low as reasonably achievable. INDICATION: 63-year-old woman with right flank pain. COMPARISON: Abdomen and pelvis CT 04/15/2017. FINDINGS: LOWER THORAX: Dependent atelectasis and nonspecific interlobular septal thickening in both lung bases. HEPATOBILIARY: No focal hepatic lesions. Distended gallbladder measures 4.9 cm in transverse diameter with questionable trace pericholecystic fluid. No biliary ductal dilatation. SPLEEN: No splenomegaly. PANCREAS: No focal masses or ductal dilatation. ADRENALS: No adrenal nodules. KIDNEYS/URETERS: No hydronephrosis, stones, or solid mass lesions. PELVIC ORGANS/BLADDER: Unremarkable. PERITONEUM/RETROPERITONEUM: No free air or fluid. LYMPH NODES: No lymphadenopathy. VESSELS: Atherosclerotic vascular calcifications in the abdominal aorta and bilateral iliac arteries without aneurysm. GI TRACT: No distention or wall thickening. Normal appendix. BONES AND SOFT TISSUES: Osteopenia. Soft tissues are unremarkable. IMPRESSION: Distended gallbladder with questionable trace pericholecystic fluid; acute cholecystitis cannot be excluded. Right upper quadrant ultrasound is recommended for further evaluation. Signed: Yazmin Morales MD Report Verified Date/Time: 05/02/2019 18:30:26 Reading Location: [facility] C013Y CT Body Reading Room Performing Organization Address City/State/Zipcode Phone Number GE RIS * Urinalysis w/Microscopic (05/02/2019 1:52 PM CDT) Color, UA Light Yellow [facility] Clarity, UA Hazy [facility] Specific Williamson, UA 1.012 1.001 - 1.035 [facility] pH, UA 7.5 5.0 - 8.0 [facility] Protein, UA Negative Negative [facility] Glucose, UA Negative Negative [facility] Ketones, UA Negative Negative [facility] Bilirubin, UA Negative Negative [facility] Blood, UA Negative Negative [facility] Nitrite, UA Negative Negative [facility] Leukocytes, UA Small (A) Negative [facility] Urobilinogen, UA 0.2 0.2 - 1.0 mg/dL [facility] RBC, UA 1 /HPF [facility] WBC, UA 4 /HPF [facility] Squam Epithel, UA 1 /HPF [facility] Crystals, Urine Rare [facility] Yeast Occasional [facility] Specimen Source [facility] Specimen Urine Performing Organization Address City/State/[facility] Centercode Phone Number [address] * ALT (SGPT) (05/02/2019 1:52 PM CDT) ALT 19Comment: Specimen slightly 6 - 55 U/L [facility] Specimen Blood Performing Organization Address City/[facility] Centerconc Phone Number [address] * AST (SGOT) (05/02/2019 1:52 PM CDT) AST 23Comment: Specimen slightly 5 - 34 U/L [facility] Specimen Blood Performing Organization Address City/[facility] Centerconc Phone Number [address] * Alkaline phosphatase (05/02/2019 1:52 PM CDT) Alkaline Phosphatase 105 40 - 150 U/L [facility] Specimen Blood Performing Organization Address City/[facility] Centercode Phone Number [address] * EKG-SCANNED (03/07/2019 3:30 PM CDT) Only the most recent of 2 results within the time period is included. Narrative Performed At * Troponin I (03/05/2019 4:28 AM CDT) Only the most recent of 2 results within the time period is included. Troponin I <0.01 0.00 - 0.03 ng/mL [facility] Specimen Blood Narrative Performed At Troponin I (TnI) levels must be interpreted in the context of the presenting [facility] symptoms and the clinical findings. Elevated TnI levels indicate myocardial [facility] damage, but are not specific for ischemic heart disease. Elevated TnI levels are seen in patients with other cardiac conditions (including myocarditis and congestive heart failure), and slight TnI elevations occur in patients with other conditions, including sepsis, renal failure, acidosis, acute neurological disease, and persistent tachyarrhythmia. Performing Organization Address [facility] Centercode Phone Number [address] [address] [facility] * Lipid panel (03/05/2019 4:28 AM CDT) Triglycerides 82 mg/dL [facility] Cholesterol 155 mg/dL [facility] HDL 64 mg/dL [facility] LDL Calculated 75 mg/dL [facility] Specimen Blood Narrative Performed At Triglyceride Reference Range: [facility] Low Risk <150 [facility] [id number] High Risk 200-499 Very High Risk>=500 Cholesterol Reference Range: Low Risk <200 [id number] High Risk>240 HDL Cholesterol Reference Range: Low Risk >=60 High Risk <40 LDL Cholesterol Reference Range: Optimal<100 Near Hvbervf332-163 Cigsqveejc640-003 Gvwf641-510 Very High >=190 Performing Organization Address City/[facility] Centercode Phone Number [facility] [address] [place] [address] [facility] * ECG/EKG Interpretation (03/04/2019 2:07 PM CDT) Narrative Performed At Jose Manuel Pack MD 03/04/20192:12 PM ECG/EKG Interpretation Date/Time: 03/04/2019 2:07 PM Performed by: Jose Manuel Pack MD Authorized by: Jose Manuel Pack MD The ECG was interpreted by ED physician. The ECG is interpreted as atrial fibrillation. Rate is normal rate. Heart rate is [address] segments normal. T waves normal. * XR chest 2 views (03/04/2019 1:34 PM CDT) Specimen Narrative Performed At FINAL REPORT [facility] Chest, PA and lateral. History: Chest pain. Comparison: 04/16/2017. Discussion: Cardiomegaly and thoracic aortic ectasia. The lungs are clear without evidence of consolidation or effusion.There are no acute osseous abnormalities. The soft tissues are unremarkable. IMPRESSION: No acute cardiopulmonary abnormality. Signed: Nikko Davis MD Report Verified Date/Time:03/04/2019 13:39:38 Reading Location: [address] Radiology Reading Room Procedure Note Interface, External Ris In - 03/04/2019 1:41 PM CDT FINAL REPORT Chest, PA and lateral. History: Chest pain. Comparison: 04/16/2017. Discussion: Cardiomegaly and thoracic aortic ectasia. The lungs are clear without evidence of consolidation or effusion. There are no acute osseous abnormalities. The soft tissues are unremarkable. IMPRESSION: No acute cardiopulmonary abnormality. Signed: Nikko Davis MD Report Verified Date/Time: 03/04/2019 13:39:38 Reading Location: [address] Radiology Reading Room Performing Organization Address City/[facility] Centercode Phone Number [facility] * D-dimer, quantitative (03/04/2019 1:24 PM CDT) Only the most recent of 2 results within the time period is included. D-Dimer, Quant 0.34 <0.50 MG/L [facility]U [facility], [facility] Specimen Blood Narrative Performed At REGARDING D-DIMER RESULTS: Results of this D-Dimer test should always be [facility] interpreted in conjunction with the patient's medical history, clinical [facility] MED[facility] presentation and other findings. DVT clinical diagnosis should not be based on [place], [facility] the results of [place] D-Dimer alone. [facility], [facility] Performing Organization Address City/[facility]/Zipcode Phone Number [facility] [address] [place] [address] [facility] [place], [facility] * Rapid Troponin I ([facility] Only) (03/04/2019 1:20 PM CDT) Only the most recent of 2 results within the time period is included. Rapid Troponin I <0.05 <0.05 ng/mL [facility], [facility] [place], [facility] Specimen Blood Performing Organization Address City/[facility] Centercode Phone Number [facility] [address] [place] [address] [facility], [facility] [place], [facility] * B-type Natriuretic Factor (BNP) (01/20/2019 5:26 AM TACK WELDER) Only the most recent of 2 results within the time period is included. BNP 417 (H) 0 - 100 pg/mL [facility] Specimen Blood Performing Organization Address City/[facility] Centercode Phone Number [address] [address] MED[facility] CENTER * ECHOCARDIOGRAM REPORT - SCAN (01/18/2019 9:20 PM TACK WELDER) Narrative Performed At * 2D Echo W/Doppler(CW/PW/Color) (01/18/2019 1:47 PM TACK WELDER) Ejection Fraction [facility] Specimen Narrative Performed At Transthoracic Echocardiography Report (TTE) [facility] Demographics [facility] Patient Name Laura BEAR of Study 01/18/2019 T [id number] Female Visit Number [id number] Room Number [id number] Number Date of Birth1955Referring Physician Susanna Epps Age63 year(s)Administrative Support Technician Allen MatAlex Mabel Cisse, Physician Procedure Type of Study TTE procedure:2DECHO W DOPPLER(CW/PW/COLOR) (Routine) Indications:Palpitations. Clinical History COPD HLD HTN BRONCHOSCOPY Height: 65 inches Weight: 78.47 kg (173 lbs) BSA: 1.86 m^2 BMI: 28.79 kg/m^2 HR: 75 bpm BP: 103/63 mmHg Summary The left ventricle is chamber size (by vol index) is normal (female - LVED vol - 29-61ml/m2). Normal LV wall thickness. All of the LV segments have low normal contractility . Estimated LVEF by qualitative assessment is lower limits of normal (50-55%) . Kgcw-xi-bzypykys mitral regurgitation. 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 Mild mitral stenosis. The estimated RA pressure by IVC dynamics 5-10mmHg . Mild tricuspid regurgitation. Estimated peak systolic PA pressure is 35-40 mmHg . Irregular rhythm during the exam. LA size is severely enlarged (>48 ml/m2) . Signature Findings Technical Quality: Technically adequate exam. Rhythm/BPIrregular rhythm during the exam. Left Ventricle The left ventricle is chamber size (by vol index) is normal (female - LVED vol - 29-61ml/m2). Normal LV wall thickness. All of the LV segments have low normal contractility . Estimated LVEF by qualitative assessment is lower limits of normal (50-55%) . Left AtriumLA size is severely enlarged (>48 ml/m2) . Right VentricleNormal right ventricle structure and function. Right Atrium Normal right atrium. Aortic Valve Mild AoV cusp thickening. Mild aortic regurgitation. Mitral Valve Lbjh-ut-lgmjgppk mitral regurgitation. 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 Mild mitral stenosis. Tricuspid ValveMild tricuspid regurgitation. Estimated peak systolic PA pressure is 35-40 mmHg . Pulmonic Valve Normal PV structure and function by limited views and Doppler. AortaAortic root size (SInus of Valsalva diameter) is normal . PericardiumNo evidence of pericardial effusion. IVC/SVC/PA/PV/PleuralThe estimated RA pressure by IVC dynamics 5-10mmHg . Chambers/Structures Left Atrium LA Dimension: 4.15 cm LA Area: 26.5 cm^2 LA Volume: 96.94 ml LA Vol. Index: 52 ml/m^2 Left Ventricle LVIDd: 4.82 cmLVEDV:108.53 ml LV Septum Diastolic: 0.73 cmLVEF 2D Cube: 47.8 % LV Septum Systolic: 0.76 cm LV PW Diastolic: 0.79 cmLV Length: 6.27 cm LV PW Systolic: 0.43 cm LVEDV Moreno's:64.18 mlLVEDVI: 35 ml/m^2 LVESV Moreno's:29.3 ml LVESVI: 16 ml/m^2 LVEF Moreno's: 54.4 % LVOT Diameter: 2.1 cm Aorta Ao Root S of Candida.: 3.12 cmAscending Aorta: 2.76 cm Doppler/Quantitative Measurements Mitral Valve Mean Velocity: 0.75 m/s Deceleration Time: 254.1 msec Mean Gradient: 2.86 mmHgArea (continuity): 1.97 cm^2 MV VTI: 28.23 cm MV Sushant. Peak: 1.32 m/s Aortic Valve Peak Velocity: 0.94 m/s Mean Velocity: 0.66 m/s Peak Gradient: 3.57 mmHgMean Gradient: 2 mmHg AV Area (continuity): 2.97 cm^2 AV VTI: 18.78 cm AV DVI: 0.86 LVOT Peak Velocity: 0.83 m/s Peak Gradient: 2.73 mmHg Mean Velocity: 0.51 m/s Mean Gradient: 1.25 mmHg LVOT Diameter: 2.1 cm LVOT VTI: 16.09 cm LVOT Area: 3.46 cm^2LVOT SV:55.7 ml LVOT CO: 4.18 l/min LVOT CI: 2.25 l/min/m^2 Procedure Note Interface, External Ris In - 01/18/2019 4:26 PM TACK WELDER Transthoracic Echocardiography Report (TTE) Demographics Patient Name MELINDA BEAR Date of Study 01/18/2019 T Gender Female Visit Number [id number] Race Unknown Room Number 2438 Number Date of 1955 Referring Physician Susanna Epps Age 63 year(s) Administrative Support Technician Allen Diaz Promotions Assistant Sales Marketing Delbert Monroe Interpreting Physician ESTEFANY Echols Procedure Type of Study TTE procedure:2DECHO W DOPPLER(CW/PW/COLOR) (Routine) Indications:Palpitations. Clinical History COPD HLD HTN BRONCHOSCOPY Height: 65 inches Weight: 78.47 kg (173 lbs) BSA: 1.86 m^2 BMI: 28.79 kg/m^2 HR: 75 bpm BP: 103/63 mmHg Summary The left ventricle is chamber size (by vol index) is normal (female - LVED vol - 29-61ml/m2). Normal LV wall thickness. All of the LV segments have low normal contractility . Estimated LVEF by qualitative assessment is lower limits of normal (50-55%) . Hczu-zc-otsqebqn mitral regurgitation. 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 Mild mitral stenosis. The estimated RA pressure by IVC dynamics 5-10mmHg . Mild tricuspid regurgitation. Estimated peak systolic PA pressure is 35-40 mmHg . Irregular rhythm during the exam. LA size is severely enlarged (>48 ml/m2) . Signature Findings Technical Quality: Technically adequate exam. Rhythm/BP Irregular rhythm during the exam. Left Ventricle The left ventricle is chamber size (by vol index) is normal (female - LVED vol - 29-61ml/m2). Normal LV wall thickness. All of the LV segments have low normal contractility . Estimated LVEF by qualitative assessment is lower limits of normal (50-55%) . Left Atrium LA size is severely enlarged (>48 ml/m2) . Right Ventricle Normal right ventricle structure and function. Right Atrium Normal right atrium. Aortic Valve Mild AoV cusp thickening. Mild aortic regurgitation. Mitral Valve Fksc-dg-qgmczyxt mitral regurgitation. 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 Mild mitral stenosis. Tricuspid Valve Mild tricuspid regurgitation. Estimated peak systolic PA pressure is 35-40 mmHg . Pulmonic Valve Normal PV structure and function by limited views and Doppler. Aorta Aortic root size (SInus of Valsalva diameter) is normal . Pericardium No evidence of pericardial effusion. IVC/SVC/PA/PV/Pleural The estimated RA pressure by IVC dynamics 5-10mmHg . Chambers/Structures Left Atrium LA Dimension: 4.15 cm LA Area: 26.5 cm^2 LA Volume: 96.94 ml LA Vol. Index: 52 ml/m^2 Left Ventricle LVIDd: 4.82 cm LVEDV:108.53 ml LV Septum Diastolic: 0.73 cm LVEF 2D Cube: 47.8 % LV Septum Systolic: 0.76 cm LV PW Diastolic: 0.79 cm LV Length: 6.27 cm LV PW Systolic: 0.43 cm LVEDV Moreno's:64.18 ml LVEDVI: 35 ml/m^2 LVESV Moreno's:29.3 ml LVESVI: 16 ml/m^2 LVEF Moreno's: 54.4 % LVOT Diameter: 2.1 cm Aorta Ao Root S of Candida.: 3.12 cm Ascending Aorta: 2.76 cm Doppler/Quantitative Measurements Mitral Valve Mean Velocity: 0.75 m/s Deceleration Time: 254.1 msec Mean Gradient: 2.86 mmHg Area (continuity): 1.97 cm^2 MV VTI: 28.23 cm MV Sushant. Peak: 1.32 m/s Aortic Valve Peak Velocity: 0.94 m/s Mean Velocity: 0.66 m/s Peak Gradient: 3.57 mmHg Mean Gradient: 2 mmHg AV Area (continuity): 2.97 cm^2 AV VTI: 18.78 cm AV DVI: 0.86 LVOT Peak Velocity: 0.83 m/s Peak Gradient: 2.73 mmHg Mean Velocity: 0.51 m/s Mean Gradient: 1.25 mmHg LVOT Diameter: 2.1 cm LVOT VTI: 16.09 cm LVOT Area: 3.46 cm^2 LVOT SV:55.7 ml LVOT CO: 4.18 l/min LVOT CI: 2.25 l/min/m^2 Performing Organization Address City/[facility] Cent[facility]ode Phone Number [facility] MKCKESS[facility] CP[facility] * CBC (Hemogram only) (01/18/2019 5:10 AM TACK WELDER) WBC 5.9 3.5 - 10.5 K/L [facility] RBC 3.65 (L) 3.93 - 5.22 M/L [facility] Hemoglobin 12.3 11.2 - 15.7 GM/DL [facility] Hematocrit 37.3 34.1 - 44.9 % [facility] MCV 102.2 (H) 79.4 - 94.8 fL [facility] MCH 33.7 (H) 25.6 - 32.2 pg [facility] MCHC 33.0 32.2 - 35.5 GM/DL [facility] RDW 13.9 11.7 - 14.4 % [facility] Platelets 147 (L) 150 - 450 K/CU MM [facility] MPV 10.0 9.4 - 12.3 fL [facility] nRBC 0 0 - 0 /100 WBC [facility] Specimen Blood Performing Organization Address City/[facility]/Zipcode Phone Number [facility] [address] [place] [address] [facility] * CT chest for pulmonary embolus (01/17/2019 11:30 AM TACK WELDER) Specimen Narrative Performed At FINAL REPORT [facility] Chest CT with contrast, PE protocol INDICATION: Shortness of breath Chest pain, acute, PE suspected, high pretest prob cp/sob COMPARISON: 04/09/2017 and 04/14/2017 TECHNIQUE: CT examination of the chest was performed after the administration of intravenous contrast per pulmonary embolism protocol. 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 This exam was performed according to our departmental dose optimization program which includes automated exposure control, adjustment of the mA and/or kV according to patient size and/or use of iterative reconstructive technique. FINDINGS: The contrast bolus was adequate. There are filling defects in the right upper lobe pulmonary artery and its branches, consistent with pulmonary emboli. There is occlusive segmental and subsegmental in the lingular pulmonary artery as well. There is no pneumothorax, pulmonary edema or pleural effusion. There is a new pulmonary nodule in the superior segment of the left lower lobe measuring 1.4 cm, image 21, suspicious for malignancy. There is scarring and nodularity in the lingula with volume loss and round opacities measuring up to 1.8 cm and 1.9 cm suggestive of infarcts with scarring and rounded atelectasis, amenable to follow-up examination. There is interval increase in nodular opacity in the left lung apex measuring 2.5 cm which can be correlated with history of prior biopsy. The major airways are clear. The visualized portion of the thyroid gland appear unremarkable. There is no hilar or axillary lymphadenopathy. Nonspecific mildly prominent mediastinal lymph nodes are again seen measuring up to 1.1 x 1.4 cm in the pretracheal region. There is no pericardial effusion. Limited visualization of the upper abdominal structures appear unremarkable. The osseous structures demonstrate degenerative changes. IMPRESSION: 1. Pulmonary emboli in the lingular and right upper lobe pulmonary arteries as above. 2. New 1.4 cm nodule in the superior segment of the left lower lobe, suspicious for malignancy. Interval increase in nodular opacity in the left lung apex. 3. Round opacities in the lingula suggestive of pulmonary infarcts with scarring and rounded atelectasis, amenable to follow-up examination. 4. Nonspecific mildly prominent mediastinal lymph nodes as before. These findings were relayed to Dr. Patten at 11:30 AM on 01/17/2019. Signed: Serjio Stevens MD Report Verified Date/Time:01/17/2019 11:31:48 Reading Location: [facility] [address] [facility] Consult Reading Room Procedure Note Interface, External Ris In - 01/17/2019 11:34 AM TACK WELDER FINAL REPORT Chest CT with contrast, PE protocol INDICATION: Shortness of breath Chest pain, acute, PE suspected, high pretest prob cp/sob COMPARISON: 04/09/2017 and 04/14/2017 TECHNIQUE: CT examination of the chest was performed after the administration of intravenous contrast per pulmonary embolism protocol. 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 This exam was performed according to our departmental dose optimization program which includes automated exposure control, adjustment of the mA and/or kV according to patient size and/or use of iterative reconstructive technique. FINDINGS: The contrast bolus was adequate. There are filling defects in the right upper lobe pulmonary artery and its branches, consistent with pulmonary emboli. There is occlusive segmental and subsegmental in the lingular pulmonary artery as well. There is no pneumothorax, pulmonary edema or pleural effusion. There is a new pulmonary nodule in the superior segment of the left lower lobe measuring 1.4 cm, image 21, suspicious for malignancy. There is scarring and nodularity in the lingula with volume loss and round opacities measuring up to 1.8 cm and 1.9 cm suggestive of infarcts with scarring and rounded atelectasis, amenable to follow-up examination. There is interval increase in nodular opacity in the left lung apex measuring 2.5 cm which can be correlated with history of prior biopsy. The major airways are clear. The visualized portion of the thyroid gland appear unremarkable. There is no hilar or axillary lymphadenopathy. Nonspecific mildly prominent mediastinal lymph nodes are again seen measuring up to 1.1 x 1.4 cm in the pretracheal region. There is no pericardial effusion. Limited visualization of the upper abdominal structures appear unremarkable. The osseous structures demonstrate degenerative changes. IMPRESSION: 1. Pulmonary emboli in the lingular and right upper lobe pulmonary arteries as above. 2. New 1.4 cm nodule in the superior segment of the left lower lobe, suspicious for malignancy. Interval increase in nodular opacity in the left lung apex. 3. Round opacities in the lingula suggestive of pulmonary infarcts with scarring and rounded atelectasis, amenable to follow-up examination. 4. Nonspecific mildly prominent mediastinal lymph nodes as before. These findings were relayed to Dr. Patten at 11:30 AM on 01/17/2019. Signed: Serjio Stevens MD Report Verified Date/Time: 01/17/2019 11:31:48 Reading Location: [facility] C013X Ortho Consult Reading Room Performing Organization Address City/State/Zipcode Phone Number GE RIS after 05/20/2018 Insurance Payer Benefit Subscriber ID Type Phone Address Plan / Group [employer] K[employer]ARE xxxxxxxxxxx MEDICARE ADV MEDICAID MEDICAID xxxxxxxxx Medicaid OF [place] Advance Directives For more information, please contact: [place] [id number] [place] [address] Date Inactivated Comments Code Status Date Activated 05/13/2019 1:57 PM Full Code 05/02/2019 9:09 PM This code status was determined by: Patient 03/05/2019 12:12 PM Full Code 03/04/2019 8:33 PM This code status was determined by: Patient 01/20/2019 12:43 PM Full Code 01/17/2019 3:31 PM This code status was determined by: Patient 04/16/2017 6:33 PM Full Code 04/09/2017 6:35 PM This code status was determined by: Patient 03/22/2015 9:18 PM Full Code 03/22/2015 8:52 AM This code status was determined by: Patient
--- OUTSIDE RECORDS SUMMARY | 2019-05-21 08:01 | XMS REPORT ---
Author Author [facility] Address Unknown Phone Unavailable Care Team Providers [facility] Name Role Phone DIPAK GINNY JJ Unavailable Unavailable ROSA GONZÁLES Unavailable Unavailable JORDY PATTEN Unavailable Unavailable CHARLES FRIED Unavailable Unavailable JIGNA, IMAD BASNADEGE Unavailable Unavailable SYSTEM, NOT IN PROVIDER Unavailable Unavailable Melissa VERDIN Unavailable Unavailable Problems This patient has no known problems. Allergies, Adverse Reactions, Alerts This patient has no known allergies or adverse reactions. Medications This patient has no known medications. Results Test Description Test Time Test Comments Text Results Atomic Results Result Comments BASIC METABOLIC PANEL 2019-05-13 04:43:00 SODIUM (BEAKER) (test qfir=872) 143 meq/L 136-145 POTASSIUM (BEAKER) (test bjrt=607) 3.8 meq/L 3.5-5.1 CHLORIDE (BEAKER) (test wped=004) 110 meq/L 98-107 CO2 (BEAKER) (test izgf=126) 25 meq/L 22-29 BLOOD UREA NITROGEN (BEAKER) (test bzpr=535) 15 mg/dL 7-21 CREATININE (BEAKER) (test bult=870) 0.98 mg/dL 0.57-1.25 GLUCOSE RANDOM (BEAKER) (test ikme=005) 99 mg/dL 70-105 CALCIUM (BEAKER) (test bcev=471) 8.9 mg/dL 8.4-10.2 EGFR (BEAKER) (test kjml=5796) 57 mL/min/1.73 sq m ESTIMATED GFR IS NOT ACCURATE CREATININE CLEARANCE IN PREDICTING GLOMERULAR FILTRATION RATE. ESTIMATED GFR IS NOT APPLICABLE FOR DIALYSIS PATIENTS. CBC W/PLT COUNT & AUTO [id number] 04:30:00* Test Item Value Reference Range Comments WHITE BLOOD CELL COUNT (BEAKER) (test wtqv=726) 5.6 K/ L 3.5-10.5 RED BLOOD CELL COUNT (BEAKER) (test zlug=594) 3.70 M/ L 3.93-5.22 HEMOGLOBIN (BEAKER) (test bacy=172) 12.2 GM/DL 11.2-15.7 HEMATOCRIT (BEAKER) (test yemh=328) 38.8 % 34.1-44.9 MEAN CORPUSCULAR VOLUME (BEAKER) (test rshz=443) 104.9 fL 79.4-94.8 MEAN CORPUSCULAR HEMOGLOBIN (BEAKER) (test chhz=089) 33.0 pg 25.6-32.2 MEAN CORPUSCULAR HEMOGLOBIN CONC (BEAKER) (test vzev=131) 31.4 GM/DL 32.2-35.5 RED CELL DISTRIBUTION WIDTH (BEAKER) (test uqzk=915) 14.6 % 11.7-14.4 PLATELET COUNT (BEAKER) (test khhb=593) 167 K/CU MM 150-450 MEAN PLATELET VOLUME (BEAKER) (test bnqr=104) 10.4 fL 9.4-12.3 NUCLEATED RED BLOOD CELLS (BEAKER) (test fsgc=378) 0 /100 WBC 0-0 NEUTROPHILS RELATIVE PERCENT (BEAKER) (test zbnx=888) 61 % LYMPHOCYTES RELATIVE PERCENT (BEAKER) (test wukp=027) 21 % MONOCYTES RELATIVE PERCENT (BEAKER) (test szvn=395) 10 % EOSINOPHILS RELATIVE PERCENT (BEAKER) (test pxvy=158) 7 % BASOPHILS RELATIVE PERCENT (BEAKER) (test gwnl=458) 1 % NEUTROPHILS ABSOLUTE COUNT (BEAKER) (test mwrb=218) 3.42 K/ L 1.56-6.13 LYMPHOCYTES ABSOLUTE COUNT (BEAKER) (test ztaz=348) 1.18 K/ L 1.18-3.74 MONOCYTES ABSOLUTE COUNT (BEAKER) (test vsbr=511) 0.56 K/ L 0.24-0.36 EOSINOPHILS ABSOLUTE COUNT (BEAKER) (test zigr=835) 0.41 K/ L 0.04-0.36 BASOPHILS ABSOLUTE COUNT (BEAKER) (test awyj=523) 0.04 K/ L 0.01-0.08 IMMATURE GRANULOCYTES-RELATIVE PERCENT (BEAKER) (test glxd=1016) 0 % 0-1 BASIC METABOLIC [id number] 08:47:00* Test Item Value Reference Range Comments SODIUM (BEAKER) (test soas=419) 142 meq/L 136-145 POTASSIUM (BEAKER) (test xvlp=011) 4.7 meq/L 3.5-5.1 CHLORIDE (BEAKER) (test oelm=931) 109 meq/L 98-107 CO2 (BEAKER) (test tcll=011) 24 meq/L 22-29 BLOOD UREA NITROGEN (BEAKER) (test mrlq=661) 14 mg/dL 7-21 CREATININE (BEAKER) (test vafp=524) 1.04 mg/dL 0.57-1.25 GLUCOSE RANDOM (BEAKER) (test fupy=574) 84 mg/dL 70-105 CALCIUM (BEAKER) (test bjvo=691) 8.9 mg/dL 8.4-10.2 EGFR (BEAKER) (test fiqr=6417) 53 mL/min/1.73 sq m ESTIMATED GFR IS NOT ACCURATE CREATININE CLEARANCE IN PREDICTING GLOMERULAR FILTRATION RATE. ESTIMATED GFR IS NOT APPLICABLE FOR DIALYSIS PATIENTS. CBC W/PLT COUNT & AUTO [id number] 08:00:00* Test Item Value Reference Range Comments WHITE BLOOD CELL COUNT (BEAKER) (test ignb=831) 6.1 K/ L 3.5-10.5 RED BLOOD CELL COUNT (BEAKER) (test fovc=254) 3.41 M/ L 3.93-5.22 HEMOGLOBIN (BEAKER) (test hxxa=027) 11.5 GM/DL 11.2-15.7 HEMATOCRIT (BEAKER) (test vkvy=878) 36.0 % 34.1-44.9 MEAN CORPUSCULAR VOLUME (BEAKER) (test dxwa=540) 105.6 fL 79.4-94.8 MEAN CORPUSCULAR HEMOGLOBIN (BEAKER) (test faqy=907) 33.7 pg 25.6-32.2 MEAN CORPUSCULAR HEMOGLOBIN CONC (BEAKER) (test kjvs=031) 31.9 GM/DL 32.2-35.5 RED CELL DISTRIBUTION WIDTH (BEAKER) (test xjpd=781) 14.4 % 11.7-14.4 PLATELET COUNT (BEAKER) (test haro=037) 198 K/CU MM 150-450 MEAN PLATELET VOLUME (BEAKER) (test jzoy=919) 10.0 fL 9.4-12.3 NUCLEATED RED BLOOD CELLS (BEAKER) (test pxjw=838) 0 /100 WBC 0-0 NEUTROPHILS RELATIVE PERCENT (BEAKER) (test pwpw=336) 67 % LYMPHOCYTES RELATIVE PERCENT (BEAKER) (test bbus=114) 20 % MONOCYTES RELATIVE PERCENT (BEAKER) (test atiz=030) 11 % EOSINOPHILS RELATIVE PERCENT (BEAKER) (test gefa=424) 2 % BASOPHILS RELATIVE PERCENT (BEAKER) (test stid=210) 1 % NEUTROPHILS ABSOLUTE COUNT (BEAKER) (test zniq=307) 4.08 K/ L 1.56-6.13 LYMPHOCYTES ABSOLUTE COUNT (BEAKER) (test aycc=293) 1.21 K/ L 1.18-3.74 MONOCYTES ABSOLUTE COUNT (BEAKER) (test ebhc=184) 0.68 K/ L 0.24-0.36 EOSINOPHILS ABSOLUTE COUNT (BEAKER) (test wugv=640) 0.10 K/ L 0.04-0.36 BASOPHILS ABSOLUTE COUNT (BEAKER) (test kbqx=086) 0.04 K/ L 0.01-0.08 IMMATURE GRANULOCYTES-RELATIVE PERCENT (BEAKER) (test vvtt=5540) 0 % 0-1 [place], CLINICAL ADMINISTRATIVE COORDINATOR IN OR/30 MINUTE [id number] 03:15:00Reason for exam:-> Lamenectomy L3,[id number] REPORT Examination: Intraoperative evaluation 2 fluoroscopic spot views were obtained during the procedure by the ordering service. Images are nondiagnostic as no radiologist was present at the time of imaging. Fluoroscopic time was 14.2 seconds. Please see the procedure report for details. Signed: Kosta Casillas MDReport Verified Date/Time: 05/12/2019 03:15:55 Reading Location: [address] Reading Room -GLUCOSE [id number] 22:13:00* Test Item Value Reference Range Comments POC-GLUCOSE METER (BEAKER) (test vbro=7942) 180 mg/dL 70-[address] [facility] [address] [facility] [address] [place], CLINICAL ADMINISTRATIVE COORDINATOR IN OR/30 MINUTE [id number] 14:49:00Reason for exam:-> Lamenectomy L3,[id number] REPORT Lumbar spine date 05/11/2019 Comment: Single view of the lumbar spine was submitted for interpretation.A metallic localizer is at L3-4 vertebral level. The findings were given to Dr. Farris in the OR at the time of the dictation. The surgeon agrees with the finding. Impression: Lumbar Localization. Signed: Jordy Ballard MDReport Verified Date/Time: 05/11/2019 14:49:53 Reading Location: [address] Consult Reading Room [id number] 06:28:00* Test Item Value Reference Range Comments PHOSPHORUS (BEAKER) (test qqru=687) 4.2 mg/dL 2.3-4.7 [id number] 06:28:00* Test Item Value Reference Range Comments MAGNESIUM (BEAKER) (test mfzs=118) 2.0 mg/dL 1.6-2.6 BASIC METABOLIC [id number] 06:28:00* Test Item Value Reference Range Comments SODIUM (BEAKER) (test twha=976) 141 meq/L 136-145 POTASSIUM (BEAKER) (test ihcd=392) 3.6 meq/L 3.5-5.1 CHLORIDE (BEAKER) (test uxrq=679) 110 meq/L 98-107 CO2 (BEAKER) (test zrlr=040) 24 meq/L 22-29 BLOOD UREA NITROGEN (BEAKER) (test usbx=697) 15 mg/dL 7-21 CREATININE (BEAKER) (test qbdg=000) 1.02 mg/dL 0.57-1.25 GLUCOSE RANDOM (BEAKER) (test ykfx=102) 101 mg/dL 70-105 CALCIUM (BEAKER) (test ebnr=802) 8.7 mg/dL 8.4-10.2 EGFR (BEAKER) (test rduu=4262) 54 mL/min/1.73 sq m ESTIMATED GFR IS NOT ACCURATE CREATININE CLEARANCE IN PREDICTING GLOMERULAR FILTRATION RATE. ESTIMATED GFR IS NOT APPLICABLE FOR DIALYSIS PATIENTS. [id number] 06:08:00* Test Item Value Reference Range Comments PROTIME (BEAKER) (test psuf=153) 13.0 seconds 11.9-14.2 INR (BEAKER) (test jfxc=639) 1.0 <=5.9 PARTIAL THROMBOPLASTIN TIME (BEAKER) (test pzgo=655) 29.3 seconds 22.5-36.0 Effective 04/20/2019: PT Reference Range ChangeNew: 11.9-14.2 Previous: 11.7-14. 7RECOMMENDED COUMADIN/WARFARIN INR THERAPY RANGESSTANDARD DOSE: 2.0-3.0 Include s: PROPHYLAXIS for venous thrombosis, systemic embolization; TREATMENT for venou s thrombosis and/or pulmonary embolus.HIGH RISK: Target INR is 2.5-3.5 for patie nts wiht mechanical heart valves.CBC W/PLT COUNT & AUTO [id number] 06:07:00* Test Item Value Reference Range Comments WHITE BLOOD CELL COUNT (BEAKER) (test dyik=073) 4.2 K/ L 3.5-10.5 RED BLOOD CELL COUNT (BEAKER) (test qmty=320) 3.57 M/ L 3.93-5.22 HEMOGLOBIN (BEAKER) (test wuul=664) 11.8 GM/DL 11.2-15.7 HEMATOCRIT (BEAKER) (test pmnj=247) 37.2 % 34.1-44.9 MEAN CORPUSCULAR VOLUME (BEAKER) (test wyyl=382) 104.2 fL 79.4-94.8 MEAN CORPUSCULAR HEMOGLOBIN (BEAKER) (test arsp=358) 33.1 pg 25.6-32.2 MEAN CORPUSCULAR HEMOGLOBIN CONC (BEAKER) (test utyk=366) 31.7 GM/DL 32.2-35.5 RED CELL DISTRIBUTION WIDTH (BEAKER) (test vwos=257) 14.5 % 11.7-14.4 PLATELET COUNT (BEAKER) (test ojei=663) 162 K/CU MM 150-450 MEAN PLATELET VOLUME (BEAKER) (test nerm=499) 10.0 fL 9.4-12.3 NUCLEATED RED BLOOD CELLS (BEAKER) (test gexi=043) 0 /100 WBC 0-0 NEUTROPHILS RELATIVE PERCENT (BEAKER) (test ubmm=300) 52 % LYMPHOCYTES RELATIVE PERCENT (BEAKER) (test pbpn=093) 25 % MONOCYTES RELATIVE PERCENT (BEAKER) (test kpdz=103) 12 % EOSINOPHILS RELATIVE PERCENT (BEAKER) (test rkaq=027) 9 % BASOPHILS RELATIVE PERCENT (BEAKER) (test wzrm=584) 1 % NEUTROPHILS ABSOLUTE COUNT (BEAKER) (test peus=635) 2.18 K/ L 1.56-6.13 LYMPHOCYTES ABSOLUTE COUNT (BEAKER) (test arwx=113) 1.04 K/ L 1.18-3.74 MONOCYTES ABSOLUTE COUNT (BEAKER) (test vdau=452) 0.50 K/ L 0.24-0.36 EOSINOPHILS ABSOLUTE COUNT (BEAKER) (test nytq=159) 0.39 K/ L 0.04-0.36 BASOPHILS ABSOLUTE COUNT (BEAKER) (test bxze=699) 0.05 K/ L 0.01-0.08 IMMATURE GRANULOCYTES-RELATIVE PERCENT (BEAKER) (test stik=4696) 0 % 0-1 URINALYSIS W/ REFLEX URINE [id number] 12:08:00* Test Item Value Reference Range Comments COLOR (BEAKER) (test ztnb=113) Light Yellow CLARITY (BEAKER) (test myev=207) Clear SPECIFIC GRAVITY UA (BEAKER) (test nwnh=047) 1.011 1.001-1.035 PH UA (BEAKER) (test wmix=053) 6.0 5.0-8.0 PROTEIN UA (BEAKER) (test kvpg=056) Negative Negative GLUCOSE UA (BEAKER) (test qcvb=549) Negative Negative KETONES UA (BEAKER) (test odeq=511) Negative Negative BILIRUBIN UA (BEAKER) (test ubby=562) Negative Negative BLOOD UA (BEAKER) (test qgmy=096) Negative Negative NITRITE UA (BEAKER) (test dezz=113) Negative Negative LEUKOCYTE ESTERASE UA (BEAKER) (test ezxe=780) Moderate Negative UROBILINOGEN UA (BEAKER) (test kypy=296) 0.2 mg/dL 0.2-1.0 RBC UA (BEAKER) (test yyro=809) < /HPF WBC UA (BEAKER) (test xczn=509) 7 /HPF MUCUS (BEAKER) (test onrf=2074) Rare SQUAMOUS EPITHELIAL (BEAKER) (test izzm=979) 2 /HPF SOURCE(BEAKER) (test hswx=1917) PLATELET AGGREGATION: DRUG [id number] 12:03:00* Test Item Value Reference Range Comments STRONG ADP RESULT(BEAKER) (test mfiv=4079) 100 % 70-94 WEAK ADP RESULT(BEAKER) (test qfwe=9577) 100 % 60-91 ARACHADONIC ACID RESULT(BEAKER) (test oqlc=1108) 74 % 63-89 PLATELET AGG DRUG INTERPRETATION (BEAKER) (test vkcw=0446) Normal aggregation results with all agonists. [id number] (BEAKER) (test uglx=9884) Alton Burkett MD (electronic signature) PLATELET COUNT AGG (BEAKER) (test fami=8796) 177 K/CU MM 150-450 Platelet aggregation results may be falsely low with platelet counts<100,000/CU MM.BASIC METABOLIC [id number] 05:09:00* Test Item Value Reference Range Comments SODIUM (BEAKER) (test hxze=408) 141 meq/L 136-145 POTASSIUM (BEAKER) (test obze=193) 3.9 meq/L 3.5-5.1 CHLORIDE (BEAKER) (test btvz=739) 109 meq/L 98-107 CO2 (BEAKER) (test yhif=613) 24 meq/L 22-29 BLOOD UREA NITROGEN (BEAKER) (test nhzm=707) 19 mg/dL 7-21 CREATININE (BEAKER) (test gief=972) 0.99 mg/dL 0.57-1.25 GLUCOSE RANDOM (BEAKER) (test bvxc=408) 87 mg/dL 70-105 CALCIUM (BEAKER) (test riuh=306) 9.1 mg/dL 8.4-10.2 EGFR (BEAKER) (test nupb=7794) 56 mL/min/1.73 sq m ESTIMATED GFR IS NOT ACCURATE CREATININE CLEARANCE IN PREDICTING GLOMERULAR FILTRATION RATE. ESTIMATED GFR IS NOT APPLICABLE FOR DIALYSIS PATIENTS. CBC W/PLT COUNT & AUTO [id number] 04:28:00* Test Item Value Reference Range Comments WHITE BLOOD CELL COUNT (BEAKER) (test ewdi=509) 5.6 K/ L 3.5-10.5 RED BLOOD CELL COUNT (BEAKER) (test tpwa=895) 4.05 M/ L 3.93-5.22 HEMOGLOBIN (BEAKER) (test ozej=188) 13.4 GM/DL 11.2-15.7 HEMATOCRIT (BEAKER) (test fpce=619) 40.4 % 34.1-44.9 MEAN CORPUSCULAR VOLUME (BEAKER) (test gqjn=924) 99.8 fL 79.4-94.8 MEAN CORPUSCULAR HEMOGLOBIN (BEAKER) (test uskw=211) 33.1 pg 25.6-32.2 MEAN CORPUSCULAR HEMOGLOBIN CONC (BEAKER) (test ieek=810) 33.2 GM/DL 32.2-35.5 RED CELL DISTRIBUTION WIDTH (BEAKER) (test lbht=359) 13.2 % 11.7-14.4 PLATELET COUNT (BEAKER) (test eyje=140) 185 K/CU MM 150-450 MEAN PLATELET VOLUME (BEAKER) (test vxuv=392) 10.2 fL 9.4-12.3 NUCLEATED RED BLOOD CELLS (BEAKER) (test hfpn=171) 0 /100 WBC 0-0 NEUTROPHILS RELATIVE PERCENT (BEAKER) (test qsbd=781) 58 % LYMPHOCYTES RELATIVE PERCENT (BEAKER) (test czkj=713) 22 % MONOCYTES RELATIVE PERCENT (BEAKER) (test aapp=588) 11 % EOSINOPHILS RELATIVE PERCENT (BEAKER) (test bzeh=052) 7 % BASOPHILS RELATIVE PERCENT (BEAKER) (test vdme=247) 1 % NEUTROPHILS ABSOLUTE COUNT (BEAKER) (test tcxo=249) 3.23 K/ L 1.56-6.13 LYMPHOCYTES ABSOLUTE COUNT (BEAKER) (test ytze=490) 1.25 K/ L 1.18-3.74 MONOCYTES ABSOLUTE COUNT (BEAKER) (test rptf=560) 0.61 K/ L 0.24-0.36 EOSINOPHILS ABSOLUTE COUNT (BEAKER) (test xtil=058) 0.39 K/ L 0.04-0.36 BASOPHILS ABSOLUTE COUNT (BEAKER) (test ovtc=794) 0.08 K/ L 0.01-0.08 IMMATURE GRANULOCYTES-RELATIVE PERCENT (BEAKER) (test tupr=5204) 0 % 0-1 MR, SPINE, LUMBAR, WITHOUT [id number] 18:33:00FINAL REPORT MR, SPINE, LUMBAR, WITHOUT CONTRAST INDICATION: Lumbar radiculopathy, > 6wks conservative tx, persistent-progressive sx, surgical candidate COMPARISON: February 08, 2014 TECHNIQUE: Multiplanar, multisequence MR images of the lumbar spi ne without contrast. FINDINGS: 5 nonrib-bearing lumbar-type vertebral bodies a re present. Alignment of the lumbar spine is within normal limits. Vertebral bod y height is maintained. Multilevel disc space height loss is present, most consp icuous at L3-L4, L4-L5 and L5-D8Theaj terminates at L1.Cauda equina demonstrates normal appearance. No acute findings in the paraspinal soft tissues. Evaluation of the individual levels demonstrates: L1/L2: Symmetric disc bulge and mild bi lateral facet arthropathy and hypertrophy. No significant canal or foraminal jaqueline rowing. L2/L3: Mild disc bulge. No significant spinal canal or foraminal narrowi ng L3/L4: Disc bulge with superimposed right paracentral and foraminal disc extr usion with cranial migration of disc material, some of which extends to the righ t subarticular recess and neural foramen with impingement of the right L4 and L3 nerve roots respectively. Although a tinier extrusion was present on prior exam, extrusion has significantly increased in size in the interim with further impi ngement of the aforementioned nerve roots. L4/L5: Disc bulge and bilateral facet arthropathy and hypertrophy. Mild bilateral foraminal narrowing. No significant spinal canal narrowing. L5/S1: Symmetric disc bulge and bilateral facet arthrop athy and hypertrophy. No significant canal or foraminal narrowing. IMPRESSION: I nterval increase disc degeneration at L3-L4 with increased size of disc extrusio n which now extends to the right subarticular recess and right neural foramen wi th impingement of the L4 and L3 nerve roots respectively. Signed: Jenn Julien MDReport Verified Date/Time: 05/04/2019 18:33:49 Reading Location: [address] Neuro Reading Room C METABOLIC [id number] 04:25:00* Test Item Value Reference Range Comments SODIUM (BEAKER) (test krnm=985) 138 meq/L 136-145 POTASSIUM (BEAKER) (test losc=272) 4.3 meq/L 3.5-5.1 CHLORIDE (BEAKER) (test eadi=445) 111 meq/L 98-107 CO2 (BEAKER) (test vkha=011) 22 meq/L 22-29 BLOOD UREA NITROGEN (BEAKER) (test agks=029) 19 mg/dL 7-21 CREATININE (BEAKER) (test xhfp=445) 0.82 mg/dL 0.57-1.25 GLUCOSE RANDOM (BEAKER) (test dwgx=765) 85 mg/dL 70-105 CALCIUM (BEAKER) (test jten=835) 8.5 mg/dL 8.4-10.2 EGFR (BEAKER) (test wkwh=6778) 70 mL/min/1.73 sq m ESTIMATED GFR IS NOT ACCURATE CREATININE CLEARANCE IN PREDICTING GLOMERULAR FILTRATION RATE. ESTIMATED GFR IS NOT APPLICABLE FOR DIALYSIS PATIENTS. CBC W/PLT COUNT & AUTO [id number] 04:01:00* Test Item Value Reference Range Comments WHITE BLOOD CELL COUNT (BEAKER) (test nrjx=987) 5.1 K/ L 3.5-10.5 RED BLOOD CELL COUNT (BEAKER) (test ibet=638) 3.77 M/ L 3.93-5.22 HEMOGLOBIN (BEAKER) (test jovl=429) 12.5 GM/DL 11.2-15.7 HEMATOCRIT (BEAKER) (test oztg=415) 38.3 % 34.1-44.9 MEAN CORPUSCULAR VOLUME (BEAKER) (test blor=462) 101.6 fL 79.4-94.8 MEAN CORPUSCULAR HEMOGLOBIN (BEAKER) (test ajhf=288) 33.2 pg 25.6-32.2 MEAN CORPUSCULAR HEMOGLOBIN CONC (BEAKER) (test jtci=118) 32.6 GM/DL 32.2-35.5 RED CELL DISTRIBUTION WIDTH (BEAKER) (test gief=699) 13.3 % 11.7-14.4 PLATELET COUNT (BEAKER) (test nyzf=348) 186 K/CU MM 150-450 MEAN PLATELET VOLUME (BEAKER) (test clbf=994) 9.9 fL 9.4-12.3 NUCLEATED RED BLOOD CELLS (BEAKER) (test safa=870) 0 /100 WBC 0-0 NEUTROPHILS RELATIVE PERCENT (BEAKER) (test flie=486) 54 % LYMPHOCYTES RELATIVE PERCENT (BEAKER) (test rxbn=131) 24 % MONOCYTES RELATIVE PERCENT (BEAKER) (test gxwk=233) 14 % EOSINOPHILS RELATIVE PERCENT (BEAKER) (test oxjz=858) 7 % BASOPHILS RELATIVE PERCENT (BEAKER) (test nocn=803) 2 % NEUTROPHILS ABSOLUTE COUNT (BEAKER) (test dzmd=621) 2.77 K/ L 1.56-6.13 LYMPHOCYTES ABSOLUTE COUNT (BEAKER) (test yuad=794) 1.22 K/ L 1.18-3.74 MONOCYTES ABSOLUTE COUNT (BEAKER) (test qupo=795) 0.71 K/ L 0.24-0.36 EOSINOPHILS ABSOLUTE COUNT (BEAKER) (test tffv=486) 0.34 K/ L 0.04-0.36 BASOPHILS ABSOLUTE COUNT (BEAKER) (test ytgg=441) 0.08 K/ L 0.01-0.08 IMMATURE GRANULOCYTES-RELATIVE PERCENT (BEAKER) (test fiwi=6698) 0 % 0-1 BASIC METABOLIC [id number] 11:37:00* Test Item Value Reference Range Comments SODIUM (BEAKER) (test nutq=696) 139 meq/L 136-145 POTASSIUM (BEAKER) (test fqql=206) 4.2 meq/L 3.5-5.1 CHLORIDE (BEAKER) (test kgun=468) 108 meq/L 98-107 CO2 (BEAKER) (test fmor=889) 27 meq/L 22-29 BLOOD UREA NITROGEN (BEAKER) (test kzpp=261) 24 mg/dL 7-21 CREATININE (BEAKER) (test tdzd=277) 1.02 mg/dL 0.57-1.25 GLUCOSE RANDOM (BEAKER) (test drbn=172) 106 mg/dL 70-105 CALCIUM (BEAKER) (test bene=985) 8.6 mg/dL 8.4-10.2 EGFR (BEAKER) (test bmey=7718) 54 mL/min/1.73 sq m ESTIMATED GFR IS NOT ACCURATE CREATININE CLEARANCE IN PREDICTING GLOMERULAR FILTRATION RATE. ESTIMATED GFR IS NOT APPLICABLE FOR DIALYSIS PATIENTS. [id number] 05:39:00* Test Item Value Reference Range Comments PROTIME (BEAKER) (test totc=860) 15.0 seconds 11.9-14.2 INR (BEAKER) (test nuco=949) 1.2 <=5.9 PARTIAL THROMBOPLASTIN TIME (BEAKER) (test thpa=896) 28.6 seconds 22.5-36.0 Effective 04/20/2019: PT Reference Range ChangeNew: 11.9-14.2 Previous: 11.7-14. 7RECOMMENDED COUMADIN/WARFARIN INR THERAPY RANGESSTANDARD DOSE: 2.0-3.0 Include s: PROPHYLAXIS for venous thrombosis, systemic embolization; TREATMENT for venou s thrombosis and/or pulmonary embolus.HIGH RISK: Target INR is 2.5-3.5 for patie nts wiht mechanical heart valves.CBC W/PLT COUNT & AUTO [id number] 05:31:00* Test Item Value Reference Range Comments WHITE BLOOD CELL COUNT (BEAKER) (test qzfg=416) 7.3 K/ L 3.5-10.5 RED BLOOD CELL COUNT (BEAKER) (test jslq=642) 3.95 M/ L 3.93-5.22 HEMOGLOBIN (BEAKER) (test korf=056) 13.1 GM/DL 11.2-15.7 HEMATOCRIT (BEAKER) (test wrcv=097) 40.9 % 34.1-44.9 MEAN CORPUSCULAR VOLUME (BEAKER) (test yduu=079) 103.5 fL 79.4-94.8 MEAN CORPUSCULAR HEMOGLOBIN (BEAKER) (test hcpd=832) 33.2 pg 25.6-32.2 MEAN CORPUSCULAR HEMOGLOBIN CONC (BEAKER) (test hnni=009) 32.0 GM/DL 32.2-35.5 RED CELL DISTRIBUTION WIDTH (BEAKER) (test ernn=037) 13.7 % 11.7-14.4 PLATELET COUNT (BEAKER) (test nsue=183) 215 K/CU MM 150-450 MEAN PLATELET VOLUME (BEAKER) (test pgov=770) 10.5 fL 9.4-12.3 NUCLEATED RED BLOOD CELLS (BEAKER) (test urhn=808) 0 /100 WBC 0-0 NEUTROPHILS RELATIVE PERCENT (BEAKER) (test otak=990) 75 % LYMPHOCYTES RELATIVE PERCENT (BEAKER) (test spuz=698) 11 % MONOCYTES RELATIVE PERCENT (BEAKER) (test rkcm=071) 9 % EOSINOPHILS RELATIVE PERCENT (BEAKER) (test hsse=248) 4 % BASOPHILS RELATIVE PERCENT (BEAKER) (test clav=423) 1 % NEUTROPHILS ABSOLUTE COUNT (BEAKER) (test lvjx=388) 5.53 K/ L 1.56-6.13 LYMPHOCYTES ABSOLUTE COUNT (BEAKER) (test pdbr=271) 0.80 K/ L 1.18-3.74 MONOCYTES ABSOLUTE COUNT (BEAKER) (test ytof=163) 0.63 K/ L 0.24-0.36 EOSINOPHILS ABSOLUTE COUNT (BEAKER) (test rayi=324) 0.29 K/ L 0.04-0.36 BASOPHILS ABSOLUTE COUNT (BEAKER) (test snux=985) 0.06 K/ L 0.01-0.08 IMMATURE GRANULOCYTES-RELATIVE PERCENT (BEAKER) (test ndai=6216) 0 % 0-1 U/S, ABDOMINAL, [id number] 21:41:00Abdomen limited area? Add comment if clarification is needed.->Gall BladderReason for exam:->BACK PAINFINAL REPORT Abdominal ultrasound dated 05/02/2019 Comment: Real-time [...] patent. Impression: Distended gallbladder with sludge. Otherwise unre markable ultrasound of the right upper quadrant abdomen. Signed: Jordy Ballard eport Verified Date/Time: 05/02/2019 21:41:02 Reading Location: [address] Reading Room 19 09:41 PM HEPATIC FUNCTION [id number] 21:34:00* Test Item Value Reference Range Comments TOTAL PROTEIN (BEAKER) (test isox=021) 4.6 gm/dL 6.0-8.3 ALBUMIN (BEAKER) (test ncfe=9470) 2.7 g/dL 3.5-5.0 BILIRUBIN TOTAL (BEAKER) (test grgi=794) 0.1 mg/dL 0.2-1.2 BILIRUBIN DIRECT (BEAKER) (test qiri=530) 0.1 mg/dL 0.1-0.5 ALKALINE PHOSPHATASE (BEAKER) (test huca=568) 68 U/L 40-150 AST (SGOT) (BEAKER) (test vbkb=215) 14 U/L 5-34 ALT (SGPT) (BEAKER) (test bkec=220) 13 U/L 6-55 BILIRUBIN, ADULT [id number] 21:34:00* Test Item Value Reference Range Comments BILIRUBIN TOTAL (BEAKER) (test gthk=871) 0.1 mg/dL 0.2-1.2 POCT-LACTIC ACID, [id number] 19:10:00* Test Item Value Reference Range Comments POC-LACTIC ACID, VENOUS (BEAKER) (test kzqb=5108) 0.7 mmol/L 0.9-1.[address] [facility] [address] [place] [id number], [id number] 18:30:00Reason for exam:->abdominal painWhat is the patient's sedation requirement?->No SedationFINAL REPORT TECHNIQUE: CT of the abdomen and [...] questionable trace pericholecystic fluid. No biliary ductal dilatation.SPLEEN: No splenomegaly.PANCREAS: No focal masses or ductal dilatation. ADRENALS: No adrenal nodules.KIDNEYS/URETERS: No hydronephrosis, stones, or solid mass lesions.PELVIC ORGANS/BLADDER: Unremarkable. PERITONEUM/RETROPERITONEUM: No free air or fluid.LYMPH NODES: No lymphadenopathy.VESSELS: Atherosclerotic vascular calcifications in the abd ominal aorta and bilateral iliac arteries without aneurysm. GI TRACT: No distent ion or wall thickening. Normal appendix. BONES AND SOFT TISSUES: Osteopenia. Sof t tissues are unremarkable. IMPRESSION:Distended gallbladder with questionable trace pericholecystic fluid; acute cholecystitis cannot be excluded. Right upper quadrant ultrasound is recommended for further evaluation. Signed: Arcenio oMrales MDReport Verified Date/Time: 05/02/2019 18:30:26 Reading Location: [facility] C [address]13Y CT Body Reading Room LINE [id number] 16:13:00* Test Item Value Reference Range Comments ALKALINE PHOSPHATASE (BEAKER) (test erdy=802) 105 U/L 40-150 ALT (SGPT)2019-05-02 16:13:00* Test Item Value Reference Range Comments ALT (SGPT) (BEAKER) (test kbjb=496) 19 U/L 6-55 Specimen slightly hemolyzed AST (SGOT)2019-05-02 16:13:00* Test Item Value Reference Range Comments AST (SGOT) (BEAKER) (test rprb=352) 23 U/L 5-34 Specimen slightly hemolyzed BASIC METABOLIC [id number] 16:13:00* Test Item Value Reference Range Comments SODIUM (BEAKER) (test awgz=709) 139 meq/L 136-145 POTASSIUM (BEAKER) (test cudw=062) 4.6 meq/L 3.5-5.1 Specimen slightly hemolyzed CHLORIDE (BEAKER) (test lntc=467) 110 meq/L 98-107 CO2 (BEAKER) (test rpbi=044) 21 meq/L 22-29 BLOOD UREA NITROGEN (BEAKER) (test nwrg=114) 22 mg/dL 7-21 CREATININE (BEAKER) (test kcnt=097) 1.01 mg/dL 0.57-1.25 Specimen slightly hemolyzed GLUCOSE RANDOM (BEAKER) (test bjft=945) 150 mg/dL 70-105 CALCIUM (BEAKER) (test zfhu=859) 9.1 mg/dL 8.4-10.2 EGFR (BEAKER) (test tjuq=9599) 55 mL/min/1.73 sq m ESTIMATED GFR IS NOT ACCURATE CREATININE CLEARANCE IN PREDICTING GLOMERULAR FILTRATION RATE. ESTIMATED GFR IS NOT APPLICABLE FOR DIALYSIS PATIENTS. CBC W/PLT COUNT & AUTO [id number] 15:25:00* Test Item Value Reference Range Comments WHITE BLOOD CELL COUNT (BEAKER) (test cqer=695) 4.5 K/ L 3.5-10.5 RED BLOOD CELL COUNT (BEAKER) (test etnh=359) 4.38 M/ L 3.93-5.22 HEMOGLOBIN (BEAKER) (test jpad=045) 14.4 GM/DL 11.2-15.7 HEMATOCRIT (BEAKER) (test gbps=484) 44.8 % 34.1-44.9 MEAN CORPUSCULAR VOLUME (BEAKER) (test tirc=729) 102.3 fL 79.4-94.8 MEAN CORPUSCULAR HEMOGLOBIN (BEAKER) (test ekak=411) 32.9 pg 25.6-32.2 MEAN CORPUSCULAR HEMOGLOBIN CONC (BEAKER) (test vmce=636) 32.1 GM/DL 32.2-35.5 RED CELL DISTRIBUTION WIDTH (BEAKER) (test apzw=728) 13.6 % 11.7-14.4 PLATELET COUNT (BEAKER) (test xgph=152) 139 K/CU MM 150-450 MEAN PLATELET VOLUME (BEAKER) (test tfdh=520) 10.9 fL 9.4-12.3 NUCLEATED RED BLOOD CELLS (BEAKER) (test wxps=283) 0 /100 WBC 0-0 NEUTROPHILS RELATIVE PERCENT (BEAKER) (test gieu=181) 78 % LYMPHOCYTES RELATIVE PERCENT (BEAKER) (test gvmp=691) 13 % MONOCYTES RELATIVE PERCENT (BEAKER) (test gvqi=959) 6 % EOSINOPHILS RELATIVE PERCENT (BEAKER) (test mjzx=874) 2 % BASOPHILS RELATIVE PERCENT (BEAKER) (test kzaj=899) 1 % NEUTROPHILS ABSOLUTE COUNT (BEAKER) (test dsbz=717) 3.54 K/ L 1.56-6.13 LYMPHOCYTES ABSOLUTE COUNT (BEAKER) (test kblg=379) 0.57 K/ L 1.18-3.74 MONOCYTES ABSOLUTE COUNT (BEAKER) (test ihhw=984) 0.28 K/ L 0.24-0.36 EOSINOPHILS ABSOLUTE COUNT (BEAKER) (test nfpo=922) 0.08 K/ L 0.04-0.36 BASOPHILS ABSOLUTE COUNT (BEAKER) (test teic=726) 0.06 K/ L 0.01-0.08 IMMATURE GRANULOCYTES-RELATIVE PERCENT (BEAKER) (test rmht=4786) 0 % 0-1 URINALYSIS W/ [id number] 14:57:00* Test Item Value Reference Range Comments COLOR (BEAKER) (test jwmo=510) Light Yellow CLARITY (BEAKER) (test gmip=544) Hazy SPECIFIC GRAVITY UA (BEAKER) (test kabj=581) 1.012 1.001-1.035 PH UA (BEAKER) (test ynmk=120) 7.5 5.0-8.0 PROTEIN UA (BEAKER) (test kupt=227) Negative Negative GLUCOSE UA (BEAKER) (test ebkq=081) Negative Negative KETONES UA (BEAKER) (test oyiu=969) Negative Negative BILIRUBIN UA (BEAKER) (test mpxr=337) Negative Negative BLOOD UA (BEAKER) (test aqny=473) Negative Negative NITRITE UA (BEAKER) (test nsxh=830) Negative Negative LEUKOCYTE ESTERASE UA (BEAKER) (test wqbl=578) Small Negative UROBILINOGEN UA (BEAKER) (test omrm=556) 0.2 mg/dL 0.2-1.0 RBC UA (BEAKER) (test dpbu=467) 1 /HPF WBC UA (BEAKER) (test kild=420) 4 /HPF SQUAMOUS EPITHELIAL (BEAKER) (test gaio=750) 1 /HPF CRYSTALS, URINE (BEAKER) (test vqhw=8256) Rare YEAST (BEAKER) (test bnul=1486) Occasional SOURCE(BEAKER) (test ekkc=7370) [id number] 06:20:00* Test Item Value Reference Range Comments MAGNESIUM (BEAKER) (test uhbd=691) 2.2 mg/dL 1.6-2.6 BASIC METABOLIC [id number] 06:20:00* Test Item Value Reference Range Comments SODIUM (BEAKER) (test uaas=505) 144 meq/L 136-145 POTASSIUM (BEAKER) (test ewlx=417) 3.7 meq/L 3.5-5.1 CHLORIDE (BEAKER) (test pjui=565) 112 meq/L 98-107 CO2 (BEAKER) (test nhln=890) 24 meq/L 22-29 BLOOD UREA NITROGEN (BEAKER) (test ykzp=023) 22 mg/dL 7-21 CREATININE (BEAKER) (test czzq=883) 1.03 mg/dL 0.57-1.25 GLUCOSE RANDOM (BEAKER) (test pynu=834) 135 mg/dL 70-105 CALCIUM (BEAKER) (test olld=460) 9.3 mg/dL 8.4-10.2 EGFR (BEAKER) (test aghy=2840) 54 mL/min/1.73 sq m ESTIMATED GFR IS NOT ACCURATE CREATININE CLEARANCE IN PREDICTING GLOMERULAR FILTRATION RATE. ESTIMATED GFR IS NOT APPLICABLE FOR DIALYSIS PATIENTS. LIPID [id number] 06:20:00* Test Item Value Reference Range Comments TRIGLYCERIDES (BEAKER) (test dmfb=846) 82 mg/dL CHOLESTEROL (BEAKER) (test gabx=875) 155 mg/dL HDL CHOLESTEROL (BEAKER) (test vius=009) 64 mg/dL LDL CHOLESTEROL CALCULATED (BEAKER) (test kxxt=582) 75 mg/dL Triglyceride Reference Range: Low Risk <150 Borderline 150-199 High Risk 200-499 Very High Risk >=500Cholesterol Reference Range: Low Risk <200 Borderline 200-239 High Risk >240HDL Cholesterol Reference Range: Low Risk >=60 High Risk <40LDL Cholesterol Reference Range: Optimal <100 Near Optimal 100-129 Borderline 130-159 High 160-189 Very High >=190 HEPATIC FUNCTION [id number] 06:20:00* Test Item Value Reference Range Comments TOTAL PROTEIN (BEAKER) (test xinq=547) 5.9 gm/dL 6.0-8.3 ALBUMIN (BEAKER) (test wqrx=5743) 3.5 g/dL 3.5-5.0 BILIRUBIN TOTAL (BEAKER) (test fxde=429) 0.2 mg/dL 0.2-1.2 BILIRUBIN DIRECT (BEAKER) (test yqsv=417) 0.1 mg/dL 0.1-0.5 ALKALINE PHOSPHATASE (BEAKER) (test hcal=868) 72 U/L 40-150 AST (SGOT) (BEAKER) (test lsqv=665) 15 U/L 5-34 ALT (SGPT) (BEAKER) (test fokq=219) 18 U/L 6-55 TROPONIN [id number] 05:53:00* Test Item Value Reference Range Comments TROPONIN I (BEAKER) (test fztq=771) < ng/mL 0.00-0.03 Troponin I (TnI) levels must be interpreted in the context of the presenting sym ptoms and the clinical findings. Elevated TnI levels indicate myocardial damage, but are not specific for ischemic heart disease. Elevated TnI levels are seen in patients with other cardiac conditions (including myocarditis and congestive h eart failure), and slight TnI elevations occur in patients with other conditions , including sepsis, renal failure, acidosis, acute neurological disease, and per sistent tachyarrhythmia.CBC W/PLT COUNT & AUTO [id number] 05:03:00* Test Item Value Reference Range Comments WHITE BLOOD CELL COUNT (BEAKER) (test fnco=749) 6.9 K/ L 3.5-10.5 RED BLOOD CELL COUNT (BEAKER) (test mhkg=383) 4.08 M/ L 3.93-5.22 HEMOGLOBIN (BEAKER) (test ocnl=032) 13.7 GM/DL 11.2-15.7 HEMATOCRIT (BEAKER) (test ghac=847) 42.6 % 34.1-44.9 MEAN CORPUSCULAR VOLUME (BEAKER) (test bpqb=072) 104.4 fL 79.4-94.8 MEAN CORPUSCULAR HEMOGLOBIN (BEAKER) (test coqj=250) 33.6 pg 25.6-32.2 MEAN CORPUSCULAR HEMOGLOBIN CONC (BEAKER) (test gfrx=776) 32.2 GM/DL 32.2-35.5 RED CELL DISTRIBUTION WIDTH (BEAKER) (test fpei=968) 15.3 % 11.7-14.4 PLATELET COUNT (BEAKER) (test nnrf=152) 217 K/CU MM 150-450 MEAN PLATELET VOLUME (BEAKER) (test ffug=844) 10.1 fL 9.4-12.3 NUCLEATED RED BLOOD CELLS (BEAKER) (test gnlf=862) 0 /100 WBC 0-0 NEUTROPHILS RELATIVE PERCENT (BEAKER) (test tjok=179) 57 % LYMPHOCYTES RELATIVE PERCENT (BEAKER) (test vsmj=980) 28 % MONOCYTES RELATIVE PERCENT (BEAKER) (test bhzv=507) 10 % EOSINOPHILS RELATIVE PERCENT (BEAKER) (test vvaw=277) 4 % BASOPHILS RELATIVE PERCENT (BEAKER) (test utdk=885) 1 % NEUTROPHILS ABSOLUTE COUNT (BEAKER) (test txhd=057) 3.91 K/ L 1.56-6.13 LYMPHOCYTES ABSOLUTE COUNT (BEAKER) (test rgqo=397) 1.90 K/ L 1.18-3.74 MONOCYTES ABSOLUTE COUNT (BEAKER) (test ufmx=209) 0.69 K/ L 0.24-0.36 EOSINOPHILS ABSOLUTE COUNT (BEAKER) (test xizz=932) 0.27 K/ L 0.04-0.36 BASOPHILS ABSOLUTE COUNT (BEAKER) (test snci=707) 0.08 K/ L 0.01-0.08 IMMATURE GRANULOCYTES-RELATIVE PERCENT (BEAKER) (test sgll=8362) 0 % 0-1 TROPONIN [id number] 22:14:00* Test Item Value Reference Range Comments TROPONIN I (BEAKER) (test fnah=265) < ng/mL 0.00-0.03 Troponin I (TnI) levels must be interpreted in the context of the presenting sym ptoms and the clinical findings. Elevated TnI levels indicate myocardial damage, but are not specific for ischemic heart disease. Elevated TnI levels are seen in patients with other cardiac conditions (including myocarditis and congestive h eart failure), and slight TnI elevations occur in patients with other conditions , including sepsis, renal failure, acidosis, acute neurological disease, and per sistent tachyarrhythmia.PT/[id number] 15:16:00* Test Item Value Reference Range Comments PROTIME (BEAKER) (test synk=334) 14.2 seconds 11.7-14.7 INR (BEAKER) (test gspy=168) 1.1 <=5.9 PARTIAL THROMBOPLASTIN TIME (BEAKER) (test dqio=347) 20.8 seconds 22.5-36.0 RECOMMENDED COUMADIN/WARFARIN INR THERAPY RANGESSTANDARD DOSE: 2.0 - 3.0 Inclu polina: PROPHYLAXIS for venous thrombosis, systemic embolization; TREATMENT for mark anthony ous thrombosis and/or pulmonary embolus.HIGH RISK: Target INR is 2.5-3.5 for pat ients with mechanical heart valves.[id number] 13:42:00* Test Item Value Reference Range Comments D-DIMER QUANTITATIVE (BEAKER) (test imrb=762) 0.34 MG/L FEU <0.50 REGARDING D-DIMER RESULTS: Results of this D-Dimer test should always be interpr eted in conjunction with the patient's medical history, clinical presentation an d other findings. DVT clinical diagnosis should not be based on the results of I NNOVANCE D-Dimer alone.RAPID TROPONIN [id number] 13:41:00* Test Item Value Reference Range Comments RAPID TROPONIN I (BEAKER) (test gcfz=9977) < ng/mL <0.05 RAD, CHEST, 2 [id number] 13:39:00Reason for exam:->CHEST PAINonset yesterdayShould this be performed at the bedside?->NoFINAL REPORT Chest, PA and lateral. History: Chest pain. Comparison: 04/16/2017. Discussion: Cardiomegaly and thoracic aortic ectasia. The lungs are clear without evidence of consolidation or effusion. There are no acute osseous abnormalities. The soft tissues are unremarkable. IMPRESSION: No acute cardiopulmonary abnormality. Signed: Nikko Mckinney MDReport Verified Valentino e/Time: 03/04/2019 13:39:38 Reading Location: [address] Radiology Reading R oom C METABOLIC [id number] 13:34:00* Test Item Value Reference Range Comments SODIUM (BEAKER) (test hcdq=683) 138 meq/L 135-148 POTASSIUM (BEAKER) (test dlbt=443) 4.2 meq/L 3.6-5.5 CHLORIDE (BEAKER) (test izmv=817) 105 meq/L 98-106 CO2 (BEAKER) (test oiyl=071) 26 meq/L 24-32 BLOOD UREA NITROGEN (BEAKER) (test tobm=889) 24 mg/dL 10-26 CREATININE (BEAKER) (test nbrg=570) 1.10 mg/dL 0.50-1.20 GLUCOSE RANDOM (BEAKER) (test bmuz=512) 104 mg/dL 70-110 CALCIUM (BEAKER) (test luur=999) 9.0 mg/dL 8.5-10.5 EGFR (BEAKER) (test laye=4120) 50 mL/min/1.73 sq m ESTIMATED GFR IS NOT ACCURATE CREATININE CLEARANCE IN PREDICTING GLOMERULAR FILTRATION RATE. ESTIMATED GFR IS NOT APPLICABLE FOR DIALYSIS PATIENTS. CBC W/PLT COUNT & AUTO [id number] 13:24:00* Test Item Value Reference Range Comments WHITE BLOOD CELL COUNT (BEAKER) (test hong=520) 9.1 K/ L 4.0-10.0 RED BLOOD CELL COUNT (BEAKER) (test ncat=180) 4.29 M/ L 4.00-5.00 HEMOGLOBIN (BEAKER) (test nden=260) 14.7 GM/DL 12.0-15.0 HEMATOCRIT (BEAKER) (test obnv=384) 43.7 % 36.0-45.0 MEAN CORPUSCULAR VOLUME (BEAKER) (test qrky=953) 101.9 fL 82.0-99.0 MEAN CORPUSCULAR HEMOGLOBIN (BEAKER) (test qzqe=818) 34.3 pg 27.0-33.0 MEAN CORPUSCULAR HEMOGLOBIN CONC (BEAKER) (test fkty=118) 33.6 GM/DL 32.0-36.0 RED CELL DISTRIBUTION WIDTH (BEAKER) (test ohfa=731) 13.7 % 10.3-14.2 PLATELET COUNT (BEAKER) (test acak=101) 251 K/CU MM 150-430 MEAN PLATELET VOLUME (BEAKER) (test pvcf=674) 7.4 fL 6.5-10.5 NEUTROPHILS RELATIVE PERCENT (BEAKER) (test dejq=217) 86 % LYMPHOCYTES RELATIVE PERCENT (BEAKER) (test irlc=683) 8 % MONOCYTES RELATIVE PERCENT (BEAKER) (test yvvf=835) 4 % EOSINOPHILS RELATIVE PERCENT (BEAKER) (test zeke=727) 2 % BASOPHILS RELATIVE PERCENT (BEAKER) (test ysrn=671) 1 % NEUTROPHILS ABSOLUTE COUNT (BEAKER) (test jeny=072) 7.78 K/ L 1.80-8.00 LYMPHOCYTES ABSOLUTE COUNT (BEAKER) (test rfma=177) 0.74 K/ L 1.48-4.50 MONOCYTES ABSOLUTE COUNT (BEAKER) (test vbtk=486) 0.34 K/ L 0.00-1.30 EOSINOPHILS ABSOLUTE COUNT (BEAKER) (test arqj=291) 0.16 K/ L 0.00-0.50 BASOPHILS ABSOLUTE COUNT (BEAKER) (test vpsa=207) 0.05 K/ L 0.00-0.20 POCT-GLUCOSE [id number] 08:56:00* Test Item Value Reference Range Comments POC-GLUCOSE METER (BEAKER) (test rcyv=0261) 142 mg/dL 70-110 TESTED AT [address] [address] BASIC METABOLIC [id number] 06:18:00* Test Item Value Reference Range Comments SODIUM (BEAKER) (test xdev=263) 140 meq/L 136-145 POTASSIUM (BEAKER) (test qfhy=903) 3.8 meq/L 3.5-5.1 CHLORIDE (BEAKER) (test dttr=244) 110 meq/L 98-107 CO2 (BEAKER) (test ixqu=950) 22 meq/L 22-29 BLOOD UREA NITROGEN (BEAKER) (test yjto=035) 23 mg/dL 7-21 CREATININE (BEAKER) (test cbze=586) 1.10 mg/dL 0.57-1.25 GLUCOSE RANDOM (BEAKER) (test wiup=686) 83 mg/dL 70-105 CALCIUM (BEAKER) (test orhy=687) 9.0 mg/dL 8.4-10.2 EGFR (BEAKER) (test aoow=1828) 50 mL/min/1.73 sq m ESTIMATED GFR IS NOT ACCURATE CREATININE CLEARANCE IN PREDICTING GLOMERULAR FILTRATION RATE. ESTIMATED GFR IS NOT APPLICABLE FOR DIALYSIS PATIENTS. B-TYPE NATRIURETIC FACTOR (BNP)2019-01-20 06:18:00* Test Item Value Reference Range Comments B-TYPE NATRIURETIC PEPTIDE (BEAKER) (test bxok=982) 417 pg/mL 0-100 POCT-GLUCOSE [id number] 21:00:00* Test Item Value Reference Range Comments POC-GLUCOSE METER (BEAKER) (test yutc=3138) 145 mg/dL 70-110 TESTED AT [address] [address] POCT-GLUCOSE [id number] 17:34:00* Test Item Value Reference Range Comments POC-GLUCOSE METER (BEAKER) (test oxnu=9601) 217 mg/dL 70-110 TESTED AT [address] [address] POCT-GLUCOSE [id number] 16:43:00* Test Item Value Reference Range Comments POC-GLUCOSE METER (BEAKER) (test cpdo=4133) 104 mg/dL 70-110 TESTED AT [address] [address] POCT-GLUCOSE [id number] 08:46:00* Test Item Value Reference Range Comments POC-GLUCOSE METER (BEAKER) (test xxjb=8634) 246 mg/dL 70-[address] [facility] [address] [facility] [address] POCT-GLUCOSE [id number] 21:13:00* Test Item Value Reference Range Comments POC-GLUCOSE METER (BEAKER) (test hudu=9176) 236 mg/dL 70-110 TESTED AT [place] [id number] [facility] [address] POCT-GLUCOSE [id number] 16:58:00* Test Item Value Reference Range Comments POC-GLUCOSE METER (BEAKER) (test jysy=1754) 123 mg/dL 70-110 TESTED AT [address] [address] POCT-GLUCOSE [id number] 07:51:00* Test Item Value Reference Range Comments POC-GLUCOSE METER (BEAKER) (test rjin=2432) 94 mg/dL 70-110 TESTED AT [place] [id number] [facility] [address] BASIC METABOLIC [id number] 06:06:00* Test Item Value Reference Range Comments SODIUM (BEAKER) (test msdn=930) 135 meq/L 136-145 POTASSIUM (BEAKER) (test nvrg=061) 4.0 meq/L 3.5-5.1 CHLORIDE (BEAKER) (test rlxk=138) 108 meq/L 98-107 CO2 (BEAKER) (test bbgf=363) 20 meq/L 22-29 BLOOD UREA NITROGEN (BEAKER) (test odir=123) 15 mg/dL 7-21 CREATININE (BEAKER) (test kwfl=761) 0.85 mg/dL 0.57-1.25 GLUCOSE RANDOM (BEAKER) (test jplf=900) 107 mg/dL 70-105 CALCIUM (BEAKER) (test hrbh=020) 8.7 mg/dL 8.4-10.2 EGFR (BEAKER) (test wpcz=5253) 67 mL/min/1.73 sq m ESTIMATED GFR IS NOT ACCURATE CREATININE CLEARANCE IN PREDICTING GLOMERULAR FILTRATION RATE. ESTIMATED GFR IS NOT APPLICABLE FOR DIALYSIS PATIENTS. CBC (HEMOGRAM ONLY)2019-01-18 05:25:00* Test Item Value Reference Range Comments WHITE BLOOD CELL COUNT (BEAKER) (test mats=387) 5.9 K/ L 3.5-10.5 RED BLOOD CELL COUNT (BEAKER) (test ycav=479) 3.65 M/ L 3.93-5.22 HEMOGLOBIN (BEAKER) (test rlfw=710) 12.3 GM/DL 11.2-15.7 HEMATOCRIT (BEAKER) (test iuxc=318) 37.3 % 34.1-44.9 MEAN CORPUSCULAR VOLUME (BEAKER) (test kwmj=405) 102.2 fL 79.4-94.8 MEAN CORPUSCULAR HEMOGLOBIN (BEAKER) (test oidc=809) 33.7 pg 25.6-32.2 MEAN CORPUSCULAR HEMOGLOBIN CONC (BEAKER) (test opwp=162) 33.0 GM/DL 32.2-35.5 RED CELL DISTRIBUTION WIDTH (BEAKER) (test ddxm=858) 13.9 % 11.7-14.4 PLATELET COUNT (BEAKER) (test whls=571) 147 K/CU MM 150-450 MEAN PLATELET VOLUME (BEAKER) (test ipqb=254) 10.0 fL 9.4-12.3 NUCLEATED RED BLOOD CELLS (BEAKER) (test zazi=237) 0 /100 WBC 0-0 POCT-GLUCOSE [id number] 21:33:00* Test Item Value Reference Range Comments POC-GLUCOSE METER (BEAKER) (test vbsy=5803) 134 mg/dL 70-110 TESTED AT [address] [address] [address], CHEST WITH IV CONTRAST- PE TEST [id number] 11:31:00Reason for exam:-> cp/sobWhat is the patient's sedation requirement?->No SedationFINAL REPORT Chest CT with contrast, PE protocol INDICATION: Shortness of breathChest pain, acute, PE suspected, high pretest probcp/sob COMPARISON: 04/09/2017 and 04/14/2017 TECHNIQUE: CT examination of the chest was performed after the administration of intravenous contrast per pulmonary embolism protocol. 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 This exam was performed according to our departmental dose optimization pro gram which includes automated exposure control, adjustment of the mA and/or kV a ccording to patient size and/or use of iterative reconstructive technique. FINDI NGS: The contrast bolus was adequate. There are filling defects in the right upp er lobe pulmonary artery and its branches, consistent with pulmonary emboli. The re is occlusive segmental and subsegmental in the lingular pulmonary artery as w ell. There is no pneumothorax, pulmonary edema or pleural effusion. There is a n ew pulmonary nodule in the superior segment of the left lower lobe measuring 1.4 cm, image 21, suspicious for malignancy. There is scarring and nodularity in the lingula with volume loss and round opacities measuring up to 1.8 cm and 1.9 cm suggestive of infarcts with scarring and rounded atelectasis, amenable to follo w-up examination. There is interval increase in nodular opacity in the left lung apex measuring 2.5 cm which can be correlated with history of prior biopsy. The major airways are clear. The visualized portion of the thyroid gland appear unr emarkable. There is no hilar or axillary lymphadenopathy. Nonspecific mildly pro minent mediastinal lymph nodes are again seen measuring up to 1.1 x 1.4 cm in th e pretracheal region. There is no pericardial effusion. Limited visualization of the upper abdominal structures appear unremarkable. The osseous structures demo nstrate degenerative changes. IMPRESSION:1. Pulmonary emboli in the lingular and right upper lobe pulmonary arteries as above.2. New 1.4 cm nodule in the superi or segment of the left lower lobe, suspicious for malignancy. Interval increase in nodular opacity in the left lung apex.3. Round opacities in the lingula sugge stive of pulmonary infarcts with scarring and rounded atelectasis, amenable to f ollow-up examination.4. Nonspecific mildly prominent mediastinal lymph nodes as before. These findings were relayed to Dr. Patten at 11:30 AM on 01/17/2019. Linda d: Serjio Stevens MDReport Verified Date/Time: 01/17/2019 11:31:48 Reading Location : [facility] B1 [id number] [facility] [place] Reading Room /[id number] 11:30:00* Test Item Value Reference Range Comments PROTIME (BEAKER) (test dqfh=422) 13.1 seconds 11.7-14.7 INR (BEAKER) (test gbhy=339) 1.0 <=5.9 PARTIAL THROMBOPLASTIN TIME (BEAKER) (test hqbo=722) 22.1 seconds 22.5-36.0 RECOMMENDED COUMADIN/WARFARIN INR THERAPY RANGESSTANDARD DOSE: 2.0 - 3.0 Inclu polina: PROPHYLAXIS for venous thrombosis, systemic embolization; TREATMENT for mark anthony ous thrombosis and/or pulmonary embolus.HIGH RISK: Target INR is 2.5-3.5 for pat ients with mechanical heart valves.RAPID TROPONIN [id number] 10:45:00* Test Item Value Reference Range Comments RAPID TROPONIN I (BEAKER) (test seuu=0050) < ng/mL <0.05 B-TYPE NATRIURETIC FACTOR (BNP)2019-01-17 10:44:00* Test Item Value Reference Range Comments B-TYPE NATRIURETIC PEPTIDE (BEAKER) (test ojeq=020) 150 pg/mL 0-100 [id number] 10:40:00* Test Item Value Reference Range Comments D-DIMER QUANTITATIVE (BEAKER) (test hjax=061) 2.31 MG/L FEU <0.50 REGARDING D-DIMER RESULTS: Results of this D-Dimer test should always be interpr eted in conjunction with the patient's medical history, clinical presentation an d other findings. DVT clinical diagnosis should not be based on the results of I NNOVANCE D-Dimer alone.[id number] 10:37:00* Test Item Value Reference Range Comments MAGNESIUM (BEAKER) (test yyuc=781) 1.9 mg/dL 1.5-3.0 BASIC METABOLIC [id number] 10:37:00* Test Item Value Reference Range Comments SODIUM (BEAKER) (test egfl=493) 141 meq/L 135-148 POTASSIUM (BEAKER) (test gzus=868) 4.4 meq/L 3.6-5.5 CHLORIDE (BEAKER) (test swii=874) 108 meq/L 98-106 CO2 (BEAKER) (test jwvu=361) 27 meq/L 24-32 BLOOD UREA NITROGEN (BEAKER) (test clxr=667) 13 mg/dL 10-26 CREATININE (BEAKER) (test lfpa=978) 1.08 mg/dL 0.50-1.20 GLUCOSE RANDOM (BEAKER) (test hmbr=545) 149 mg/dL 70-110 CALCIUM (BEAKER) (test hlqg=549) 8.7 mg/dL 8.5-10.5 EGFR (BEAKER) (test ozmp=9124) 51 mL/min/1.73 sq m ESTIMATED GFR IS NOT ACCURATE CREATININE CLEARANCE IN PREDICTING GLOMERULAR FILTRATION RATE. ESTIMATED GFR IS NOT APPLICABLE FOR DIALYSIS PATIENTS. CBC W/PLT COUNT & AUTO [id number] 10:27:00* Test Item Value Reference Range Comments WHITE BLOOD CELL COUNT (BEAKER) (test forb=326) 6.3 K/ L 4.0-10.0 RED BLOOD CELL COUNT (BEAKER) (test rmwk=805) 4.12 M/ L 4.00-5.00 HEMOGLOBIN (BEAKER) (test difh=218) 14.1 GM/DL 12.0-15.0 HEMATOCRIT (BEAKER) (test zgbs=556) 41.8 % 36.0-45.0 MEAN CORPUSCULAR VOLUME (BEAKER) (test ayyq=642) 101.3 fL 82.0-99.0 MEAN CORPUSCULAR HEMOGLOBIN (BEAKER) (test rsmr=786) 34.1 pg 27.0-33.0 MEAN CORPUSCULAR HEMOGLOBIN CONC (BEAKER) (test rqzt=478) 33.6 GM/DL 32.0-36.0 RED CELL DISTRIBUTION WIDTH (BEAKER) (test snqn=056) 13.4 % 10.3-14.2 PLATELET COUNT (BEAKER) (test oupr=741) 174 K/CU MM 150-430 MEAN PLATELET VOLUME (BEAKER) (test qyxy=627) 8.1 fL 6.5-10.5 NEUTROPHILS RELATIVE PERCENT (BEAKER) (test xtam=379) 78 % LYMPHOCYTES RELATIVE PERCENT (BEAKER) (test gswa=933) 12 % MONOCYTES RELATIVE PERCENT (BEAKER) (test mgrv=743) 8 % EOSINOPHILS RELATIVE PERCENT (BEAKER) (test sgzg=686) 2 % BASOPHILS RELATIVE PERCENT (BEAKER) (test auvr=282) 1 % NEUTROPHILS ABSOLUTE COUNT (BEAKER) (test vhay=440) 4.87 K/ L 1.80-8.00 LYMPHOCYTES ABSOLUTE COUNT (BEAKER) (test zkfp=803) 0.74 K/ L 1.48-4.50 MONOCYTES ABSOLUTE COUNT (BEAKER) (test xtzp=523) 0.48 K/ L 0.00-1.30 EOSINOPHILS ABSOLUTE COUNT (BEAKER) (test tgox=057) 0.12 K/ L 0.00-0.50 BASOPHILS ABSOLUTE COUNT (BEAKER) (test lwiu=413) 0.06 K/ L 0.00-0.20 AFB CULTURE + [id number] 12:39:00* Test Item Value Reference Range Comments CULTURE (BEAKER) (test aagj=4383) No acid-fast bacilli isolated in 42 days AFB SMEAR (BEAKER) (test husf=387) No acid fast bacilli seen FUNGUS CULTURE + [id number] 09:47:00* Test Item Value Reference Range Comments CULTURE (BEAKER) (test fczl=1048) No fungus isolated in 28 days FUNGUS SMEAR (BEAKER) (test rwwu=0536) No fungi seen FINE NEEDLE ASPIRATION BY [id number] 11:08:00Medical Cytology Report Case: [id number] Authorizing Provider: Charles Fried MD Collected: 04/30/2017 1702 Ordering Location: [facility] Received: 05/01/2017 1056 Pathologist: Clara Blair MD Specimen: Lymph Node, Lower Paratracheal, Left, Station 4L, 4 sets rapids in CRR LYMPH NODE, LOWER PARATRACHEAL, LEFT, STATION 4L FNA (EBUS) BY CLINICIAN (REYES) (CYTOSPINS, CELL BLOCK): - ADEQUATE SAMPLE - NEGATIVE FOR EPITHELIAL MALIGNANCY - CONSISTENT WITH REACTIVE LYMPH CODEElec tronically signed by Clara Blair MD on 05/06/2017 at 11:08 AMPlease see cases [id number] through [id number], [id number], [id number] diagnosis of adenocarcino ma in left upper lobe nodule([id number]), lymphadenopathyLYMPH NODE, LOWER PARATRA CHEAL, LEFT, STATION 4L EBUS15 mls in cytorich red; 9 direct smear slides, cell blockCollected: [id number]: [id number] PRESENT (5:10PM, [place])[facility], Department of Pathology, [address] [place] [id number], [facility], [address] [place] [address], WJSB NEEDLE ASPIRATION BY [id number] 16:56:00Medical Cytology Report Case: [id number] Authorizing Provider: Charles Fried MD Collected: 04/30/2017 1704 Ordering Location: [facility] Received: 05/01/2017 1056 Pathologist: Clara Blair MD Specimen: Lymph Node, Subcarinal, Station 7, 2 sets slides in CRR LYMPH NODE, SUBCARINAL, STATION 7 EBUS FNA BY CLINICIAN (CYTOSPINS AND CELL BLOCK OF ASPIRATE): - ADEQUATE SAMPLE - NEGATIVE FOR EPITHELIAL MALIGNANCY Please see cases [id number] through [id number], [id number] 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([id number]), lymphadenopathyLYMPH NODE, SUBCARINAL, STATION 7 EBUS10 mls in cytorich red; 6 direct smear slides, cell blockCollected: [id number]: [id number] [facility] Hospital [facility], D epartment of Pathology, [address] [place] [address], [facility], Department of Pathology, [address] [place] [address], DCIE NEEDLE ASPIRATION BY [id number] 16:29:00Medical Cytology Report Case: [id number] Authorizing Provider: Charles Fried MD Collected: 04/30/2017 1615 Ordering Location: [facility] Received: 05/01/2017 1056 Pathologist: Clara Blari MD Specimen: Lymph Node, Lower Paratracheal, Right, Station 4R, 3 sets rapids in CRR LYMPH NODE, LOWER PARATRACHEAL, RIGHT, STATION 4R EBUS (CYTOSPINS AND CELL BLOCK): - NEGATIVE FOR EPITHELIAL MALIGNANCY - POLYMORPHOUS LYMPHOCYTES WITH TINGIBLE BODY MACROPHAGES, FAVOR REACTIVE Please see cases [id number], [id number], [id number] 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), lymphadenopathyLYMPH NODE, LOWER PARATRACHEAL, RIGHT, STATION 4R EBUS12 mls in cytorich red; 9 direct smear slides, cell blockCollected: [id number]: [id number] PRESENT (4:47PM, [place])[facility], Department of Pathology, [address] [place] [id number], [facility], [address] [place] [address], IDGPFCJEH CULTURE + GRAM [id number] 12:28:00* Test Item Value Reference Range Comments CULTURE (BEAKER) (test odkq=5617) No growth GRAM STAIN RESULT (BEAKER) (test ecjm=4721) 1+ WBCs GRAM STAIN RESULT (BEAKER) (test qejb=65288) No organisms seen SPIN/CONCENTRATION [id number] 13:44:00* Test Item Value Reference Range Comments CONCENTRATION CHARGED (BEAKER) (test frfp=3851) Done FINE NEEDLE ASPIRATE (FNA) [id number] 12:00:00* Test Item Value Reference Range Comments CYTOLOGY RESULT POINTER (BEAKER) (test wiuu=9703) See Separate Report FINE NEEDLE ASPIRATE (FNA) [id number] 12:00:00* Test Item Value Reference Range Comments CYTOLOGY RESULT POINTER (BEAKER) (test mbab=8323) See Separate Report FINE NEEDLE ASPIRATE (FNA) [id number] 12:00:00* Test Item Value Reference Range Comments CYTOLOGY RESULT POINTER (BEAKER) (test xzmz=2132) See Separate Report PROTHROMBIN TIME/[id number] 13:11:00* Test Item Value Reference Range Comments PROTIME (BEAKER) (test tsdw=268) 13.3 seconds 11.7-14.7 INR (BEAKER) (test oxuu=482) 1.0 <=5.9 RECOMMENDED COUMADIN/WARFARIN INR THERAPY RANGESSTANDARD DOSE: 2.0 - 3.0 Inclu polina: PROPHYLAXIS for venous thrombosis, systemic embolization; TREATMENT for mark anthony ous thrombosis and/or pulmonary embolus.HIGH RISK: Target INR is 2.5-3.5 for pat ients with mechanical heart valves.[id number] 12:50:00* Test Item Value Reference Range Comments SODIUM (BEAKER) (test mbru=490) 146 meq/L 136-145 POTASSIUM (BEAKER) (test zuzv=491) 5.5 meq/L 3.5-5.1 CHLORIDE (BEAKER) (test hxbp=897) 113 meq/L 98-107 CO2 (BEAKER) (test jsnv=734) 24 meq/L 22-29 BUN AND [id number] 12:50:00* Test Item Value Reference Range Comments BLOOD UREA NITROGEN (BEAKER) (test asiy=445) 19 mg/dL 7-21 CREATININE (BEAKER) (test xlyr=682) 1.15 mg/dL 0.57-1.25 EGFR (BEAKER) (test husl=2914) 48 mL/min/1.73 sq m ESTIMATED GFR IS NOT ACCURATE CREATININE CLEARANCE IN PREDICTING GLOMERULAR FILTRATION RATE. ESTIMATED GFR IS NOT APPLICABLE FOR DIALYSIS PATIENTS. [id number] 12:17:00* Test Item Value Reference Range Comments HEMOGLOBIN (BEAKER) (test kkqg=270) 14.6 GM/DL 12.0-15.0 BASIC METABOLIC [id number] 06:27:00* Test Item Value Reference Range Comments SODIUM (BEAKER) (test xlao=709) 140 meq/L 136-145 POTASSIUM (BEAKER) (test grby=654) 4.4 meq/L 3.5-5.1 Specimen slightly hemolyzed CHLORIDE (BEAKER) (test fqpk=985) 111 meq/L 98-107 CO2 (BEAKER) (test rmzl=942) 22 meq/L 22-29 BLOOD UREA NITROGEN (BEAKER) (test pjnr=140) 10 mg/dL 7-21 CREATININE (BEAKER) (test opla=881) 0.84 mg/dL 0.57-1.25 Specimen slightly hemolyzed GLUCOSE RANDOM (BEAKER) (test ignl=024) 83 mg/dL 70-105 CALCIUM (BEAKER) (test uqyz=339) 8.4 mg/dL 8.4-10.2 EGFR (BEAKER) (test dhph=7882) 68 mL/min/1.73 sq m ESTIMATED GFR IS NOT ACCURATE CREATININE CLEARANCE IN PREDICTING GLOMERULAR FILTRATION RATE. ESTIMATED GFR IS NOT APPLICABLE FOR DIALYSIS PATIENTS. TISSUE [id number] 08:50:00Surgical Pathology Report Case: [id number] Authorizing Provider: Darren Romo MD Collected: 04/09/2017 1410 Ordering Location: [facility] Radiology Cat Scan Received: 04/09/2017 9607 Pathologist: Leon Garcia MD Specimen: Lung, Left PART A LEFT LUNG BIOPSY:WELL DIFFERENTIATED ADENOCARCINOMA.SEE DIAGNOSTIC COMMENT. The tumor cells demonstrate a well differentiated morphology. Immunohistochemical studies performed on block A1 demonstrate the tumor cells to be positive for Napsin A and CK7. They are negative for CK7, PAX-8, TTF-1, sim-3, CK20, synaptophysin, and ER. A reliable site of origin cannot be determined with the demonstrated immunoprofile. This case has been concurrently reviewed with Dr. 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 CG/plThe following special studies were performed on this case and the interpret ation is incorporated in the diagnostic report above:BLOCK A1- CK7, CK20, TTF-1, NAPSIN A, PAX-8, GATA3, SYNAPTOPHYSIN, ERThe immunohistochemistry test was volodymyr bains and its performance characteristics determined by [facility], Pathology Laboratory. It has not been cleared or approved by the U.S. Food and Drug Administration. The FDA has determined that such clearance or approval is not necessary. The test is used for clinical purposes. It should not be rega rded as investigational or for research. This laboratory is certified under the Clinical Laboratory Improvement Amendments of 1988 (CLIA-88) as qualified to per form high complexity clinical laboratory testing.BASIC METABOLIC [id number] 02:16:00* Test Item Value Reference Range Comments SODIUM (BEAKER) (test kdnn=064) 140 meq/L 136-145 POTASSIUM (BEAKER) (test kxlp=822) 4.1 meq/L 3.5-5.1 Specimen slightly hemolyzed CHLORIDE (BEAKER) (test ypbb=009) 107 meq/L 98-107 CO2 (BEAKER) (test dcco=676) 24 meq/L 22-29 BLOOD UREA NITROGEN (BEAKER) (test bcml=996) 14 mg/dL 7-21 CREATININE (BEAKER) (test zohh=033) 1.09 mg/dL 0.57-1.25 Specimen slightly hemolyzed GLUCOSE RANDOM (BEAKER) (test qfdi=041) 104 mg/dL 70-105 CALCIUM (BEAKER) (test oyig=121) 8.8 mg/dL 8.4-10.2 EGFR (BEAKER) (test ctwg=9380) 51 mL/min/1.73 sq m ESTIMATED GFR IS NOT ACCURATE CREATININE CLEARANCE IN PREDICTING GLOMERULAR FILTRATION RATE. ESTIMATED GFR IS NOT APPLICABLE FOR DIALYSIS PATIENTS. PHENYTOIN LEVEL, [id number] 18:09:00* Test Item Value Reference Range Comments PHENYTOIN (DILANTIN) (BEAKER) (test fupm=628) 10.0 ug/mL 10.0-20.0 BASIC METABOLIC [id number] 05:20:00* Test Item Value Reference Range Comments SODIUM (BEAKER) (test nipo=416) 140 meq/L 136-145 POTASSIUM (BEAKER) (test snhd=391) 4.5 meq/L 3.5-5.1 CHLORIDE (BEAKER) (test xdzq=482) 112 meq/L 98-107 CO2 (BEAKER) (test usdm=695) 21 meq/L 22-29 BLOOD UREA NITROGEN (BEAKER) (test cygz=242) 12 mg/dL 7-21 CREATININE (BEAKER) (test cuyc=077) 0.92 mg/dL 0.57-1.25 GLUCOSE RANDOM (BEAKER) (test oxti=671) 100 mg/dL 70-105 CALCIUM (BEAKER) (test yrxv=435) 8.5 mg/dL 8.4-10.2 EGFR (BEAKER) (test pgwu=8979) 62 mL/min/1.73 sq m ESTIMATED GFR IS NOT ACCURATE CREATININE CLEARANCE IN PREDICTING GLOMERULAR FILTRATION RATE. ESTIMATED GFR IS NOT APPLICABLE FOR DIALYSIS PATIENTS. BASIC METABOLIC [id number] 04:08:00* Test Item Value Reference Range Comments SODIUM (BEAKER) (test xcho=217) 140 meq/L 136-145 POTASSIUM (BEAKER) (test ggye=944) 4.2 meq/L 3.5-5.1 Specimen slightly hemolyzed CHLORIDE (BEAKER) (test tlvm=027) 111 meq/L 98-107 CO2 (BEAKER) (test zhxm=905) 20 meq/L 22-29 BLOOD UREA NITROGEN (BEAKER) (test xtqh=949) 15 mg/dL 7-21 CREATININE (BEAKER) (test ngxy=777) 0.84 mg/dL 0.57-1.25 Specimen slightly hemolyzed GLUCOSE RANDOM (BEAKER) (test ahhw=333) 116 mg/dL 70-105 CALCIUM (BEAKER) (test tbam=890) 8.7 mg/dL 8.4-10.2 EGFR (BEAKER) (test vdyz=3090) 68 mL/min/1.73 sq m ESTIMATED GFR IS NOT ACCURATE CREATININE CLEARANCE IN PREDICTING GLOMERULAR FILTRATION RATE. ESTIMATED GFR IS NOT APPLICABLE FOR DIALYSIS PATIENTS. CBC W/PLT COUNT & AUTO [id number] 04:03:00* Test Item Value Reference Range Comments WHITE BLOOD CELL COUNT (BEAKER) (test jcpt=885) 5.6 K/ L 4.0-10.0 RED BLOOD CELL COUNT (BEAKER) (test wnmw=691) 4.38 M/ L 4.00-5.00 HEMOGLOBIN (BEAKER) (test jtho=170) 14.7 GM/DL 12.0-15.0 HEMATOCRIT (BEAKER) (test baly=383) 43.3 % 36.0-45.0 MEAN CORPUSCULAR VOLUME (BEAKER) (test qgfw=228) 98.9 fL 82.0-99.0 MEAN CORPUSCULAR HEMOGLOBIN (BEAKER) (test zegm=821) 33.5 pg 27.0-33.0 MEAN CORPUSCULAR HEMOGLOBIN CONC (BEAKER) (test nqie=616) 33.9 GM/DL 32.0-36.0 RED CELL DISTRIBUTION WIDTH (BEAKER) (test emhe=690) 13.1 % 10.3-14.2 PLATELET COUNT (BEAKER) (test efww=026) 156 K/CU MM 150-430 MEAN PLATELET VOLUME (BEAKER) (test tter=334) 7.4 fL 6.5-10.5 NUCLEATED RED BLOOD CELLS (BEAKER) (test jwgs=703) 0 /100 WBC 0-0 NEUTROPHILS RELATIVE PERCENT (BEAKER) (test synn=872) 68 % LYMPHOCYTES RELATIVE PERCENT (BEAKER) (test belf=683) 22 % MONOCYTES RELATIVE PERCENT (BEAKER) (test tegn=550) 6 % EOSINOPHILS RELATIVE PERCENT (BEAKER) (test dlyw=439) 3 % BASOPHILS RELATIVE PERCENT (BEAKER) (test epuj=155) 1 % NEUTROPHILS ABSOLUTE COUNT (BEAKER) (test otfh=515) 3.78 K/ L 1.80-8.00 LYMPHOCYTES ABSOLUTE COUNT (BEAKER) (test kylm=953) 1.22 K/ L 1.48-4.50 MONOCYTES ABSOLUTE COUNT (BEAKER) (test kcnq=186) 0.36 K/ L 0.00-1.30 EOSINOPHILS ABSOLUTE COUNT (BEAKER) (test jwvf=820) 0.18 K/ L 0.00-0.50 BASOPHILS ABSOLUTE COUNT (BEAKER) (test knoq=719) 0.03 K/ L 0.00-0.20 0.00PT/[id number] 10:41:00* Test Item Value Reference Range Comments PROTIME (BEAKER) (test msgc=686) 14.4 seconds 11.7-14.7 INR (BEAKER) (test bwdw=114) 1.1 <=5.9 PARTIAL THROMBOPLASTIN TIME (BEAKER) (test rrqo=392) 26.3 seconds 22.5-36.0 RECOMMENDED COUMADIN/WARFARIN INR THERAPY RANGESSTANDARD DOSE: 2.0 - 3.0 Inclu polina: PROPHYLAXIS for venous thrombosis, systemic embolization; TREATMENT for mark anthony ous thrombosis and/or pulmonary embolus.HIGH RISK: Target INR is 2.5-3.5 for pat ients with mechanical heart valves.PLATELET [id number] 10:29:00* Test Item Value Reference Range Comments PLATELET COUNT (BEAKER) (test zvoq=016) 165 K/CU MM 150-430
--- NOTE | 2019-05-21 08:11 | NUR ---
pt back to room and given gown and sheet. pt asked to change for eval by , pt states she will do so.
--- NOTE | 2019-05-21 08:13 | NUR ---
Spouse states she is on blood thinners and was concerned. pt s/p back surgery from Thursday and taking pain medications and states she does not want to take any oral stool softners because, "i just dont want too." pt states it was a suppository was trying to place and instead placed in vagina accidentally.
--- NOTE | 2019-05-21 08:39 | NUR ---
2 PAKS WIPES AND 2 PAIRS SOCKS GIVEN FOR PT COMFORT.
--- NOTE | 2019-05-21 08:48 | NUR ---
BOTH PT AND SPOUSE SMILING AT DISCHARGE THANKING STAFF FOR HELPING. AMBULATORY AT [facility].
== END 2019-05-21 08:49 | disposition home or self-care (01) ==
LOC: FSED 07:55
DX: K59.00 Constipation, unspecified (principal); G40.909 Epilepsy, unspecified, not intractable, without status epilepticus; Z87.891 Personal history of nicotine dependence
CPT/HCPCS: 99284

== ENCOUNTER 2021-11-21 18:33 | Emergency (ER) | payer MEDICARE ==
[~2021-11-21] VITALS: Ht 165.1 cm; Wt 67.6 kg
[~2021-11-21 18:33] MED LIST changes: +ALBUTEROL SULF8.5 GM INH; +CITRACAL-VIT D1 EACH; +FIORICET 50-301 EACH PO; +FUROSEMIDE40 MG PO; +METOPROLOL TAR100 MG PO; +PANTOPRAZOLE SO40 MG PO; +TRELEGY ELLIPT1 EACH; +TRIAMCINOLONE A15 G1 TOP; +XARELTO20 MG PO
[2021-11-21 19:31] VITALS: BP 135/60
== END 2021-11-21 19:31 | disposition home or self-care (01) ==
LOC: FSED 18:39
DX: I95.9 Hypotension, unspecified (principal); I10 Essential (primary) hypertension; G40.909 Epilepsy, unspecified, not intractable, without status epilepticus; Z95.820 Peripheral vascular angioplasty status with implants and grafts; Z88.2 Allergy status to sulfonamides; Z88.8 Allergy status to other drugs, medicaments and biological substances
CPT/HCPCS: 99282

== ENCOUNTER 2025-05-28 10:21 | Emergency (ER) | payer MEDICARE ==
[~2025-05-28] VITALS: Ht 165.1 cm; Wt 73.5 kg
[~2025-05-28 10:21] MED LIST changes: +ONDANSETRON ODT4 MG PO; +TYLENOL325 MG PO
[2025-05-28 10:43] VITALS: PULSE 87; RESP 16; TEMP 97.5
[2025-05-28 10:58] LABS: LEUKOCYTE ESTERASE ,URINE SMALL (NEGATIVE); PROTEIN,URINE DIPSTICK NEGATIVE (NEGATIVE); URINE UROBILINOGEN 0.2 mg/dL (0.2 - 1)
[2025-05-28 11:09] LABS: EPITHELIAL CELLS,URINE MANY /LPF; WBC,URINE (MAN) >50 /HPF (0-5)
[2025-05-28 11:45] VITALS: BP 109/66; PULSE 67; RESP 16; O2SAT 100
== END 2025-05-28 11:40 | disposition home or self-care (01) ==
LOC: ER 10:26
DX: R10.30 Lower abdominal pain, unspecified (principal); N30.10 Interstitial cystitis (chronic) without hematuria; I12.9 Hypertensive chronic kidney disease with stage 1 through stage 4 chronic kidney disease, or unspecified chronic kidney disease; N18.9 Chronic kidney disease, unspecified; J44.9 Chronic obstructive pulmonary disease, unspecified; I50.9 Heart failure, unspecified; J45.909 Unspecified asthma, uncomplicated; I48.91 Unspecified atrial fibrillation; G40.909 Epilepsy, unspecified, not intractable, without status epilepticus; K21.9 Gastro-esophageal reflux disease without esophagitis; M81.0 Age-related osteoporosis without current pathological fracture; Z86.718 Personal history of other venous thrombosis and embolism
CPT/HCPCS: 81001; 87086; 99282

== ENCOUNTER 2025-06-18 19:43 | Emergency (ER) | payer MEDICARE ==
[~2025-06-18] VITALS: Ht 165.1 cm; Wt 73.5 kg
[2025-06-18 20:04] VITALS: PULSE 82; RESP 18; TEMP 98
[2025-06-18] MEDS: Morphine 4mg INJECTION 4 MG/ML INJ IM ONE (20:38)
[2025-06-18 21:29] VITALS: BP 139/67; PULSE 82; RESP 18; TEMP 98; O2SAT 94
== END 2025-06-18 21:29 | disposition home or self-care (01) ==
LOC: FSED 19:45
DX: M25.532 Pain in left wrist (principal); S52.592A Other fractures of lower end of left radius, initial encounter for closed fracture; W22.09XA Striking against other stationary object, initial encounter; Y92.89 Other specified places as the place of occurrence of the external cause; I12.9 Hypertensive chronic kidney disease with stage 1 through stage 4 chronic kidney disease, or unspecified chronic kidney disease; N18.9 Chronic kidney disease, unspecified; I50.9 Heart failure, unspecified; J44.9 Chronic obstructive pulmonary disease, unspecified; I48.91 Unspecified atrial fibrillation; G40.909 Epilepsy, unspecified, not intractable, without status epilepticus; K21.9 Gastro-esophageal reflux disease without esophagitis; M81.0 Age-related osteoporosis without current pathological fracture; Z86.718 Personal history of other venous thrombosis and embolism
CPT/HCPCS: 29125; 73110; 96372; 99283; J2270

== ENCOUNTER 2025-07-03 01:55 | Emergency (ER) | payer MEDICARE ==
[~2025-07-03] VITALS: Ht 162.6 cm; Wt 72.1 kg
[2025-07-03 02:06] VITALS: PULSE 66; RESP 18; TEMP 98.3
[2025-07-03] MEDS ORDERED: CEFPODOXIME PR200 MG PO (03:03)
[2025-07-03] MEDS ORDERED: LIDOCAINE HCL 1% 30ML-PF VIAL ONE (03:27)
[2025-07-03] MEDS ORDERED: LIDOCAINE HCL 1% LOCAL INJ 20 ML VIAL ONE (03:29)
[2025-07-03] MEDS: CEFTRIAXONE 1 GM VIAL IM ONE (03:32)
[2025-07-03] MEDS ORDERED: PYRIDIUM100 MG PO (03:44)
[2025-07-03 03:54] VITALS: BP 167/67; PULSE 64; RESP 18; TEMP 98; O2SAT 93
== END 2025-07-03 03:54 | disposition home or self-care (01) ==
LOC: FSED 02:50
DX: R30.0 Dysuria (principal); N39.0 Urinary tract infection, site not specified; I12.9 Hypertensive chronic kidney disease with stage 1 through stage 4 chronic kidney disease, or unspecified chronic kidney disease; N18.9 Chronic kidney disease, unspecified; J44.9 Chronic obstructive pulmonary disease, unspecified; I50.9 Heart failure, unspecified; J45.909 Unspecified asthma, uncomplicated; I48.91 Unspecified atrial fibrillation; G40.909 Epilepsy, unspecified, not intractable, without status epilepticus; K21.9 Gastro-esophageal reflux disease without esophagitis; M81.0 Age-related osteoporosis without current pathological fracture; Z86.718 Personal history of other venous thrombosis and embolism
CPT/HCPCS: 81003; 87086; 87186; 96372; 99283; J0696; J2003